=== PATIENT | male | born 1935 | race Caucasian/White ===

== ENCOUNTER → 2017-08-12 | Outpatient (CLI) | payer MEDICARE, OTHER ==
[~2017-08-12] MED LIST: ACETAMINOPHEN325 M1 PO; ASPIR 8181 MG PO; BACTRIM 400-801 EACH PO; CALCIUM ACETAT667 M1; COLESTIPOL HCL1 GM PO; DIATRIZOATE MEGL/DIATRIZOA SOD 30 ML BTL PO ONE; DICYCLOMINE; DICYCLOMINE HCL10 MG PO; ETODOLAC; ETODOLAC400 MG PO; FOLIC ACID; FOLIC ACID1 MG PO; GABAPENTIN; GABAPENTIN100 MG PO; GABAPENTIN300 MG PO; HYDROXYZINE HCL25 MG PO; IOPAMIDOL 370 MG/ML 200 ML INFUS..BTL INJ ONE; LACTULOSE; METHOTREXATE; METHOTREXATE2.5 MG PO; METOCLOPRAMIDE10 MG PO; NEXIUM20 MG; NEXIUM20 MG PO; PANTOPRAZOLE SO40 MG PO; PLAQUENIL200 MG PO; SODIUM CHLORIDE 0.9% 50ML 50 ML ONE; TRAMADOL; TYLENOL 8 HOUR650 MG PO; ULTRAM50 MG PO; metanx PO
[2017-08-12 13:36] LABS: BLOOD UREA NITROGEN 17 mg/dL (7-26); BUN/CREATININE RATIO 18 (6-25); CREATININE, SERUM 0.95 mg/dL (0.72-1.25); EST GLOMERULAR FILTRATION RATE > 60 ML/MIN (60-)
--- NOTE | 2017-08-12 15:20 | Diagnostic Imaging Report ---
PROCEDURE: CT ABDOMEN AND PELVIS WITH CONTRAST TECHNIQUE: The abdomen and pelvis were scanned utilizing a multidetector helical scanner from the diaphragm to the lesser trochanter after the IV administration of 100 cc of Isovue 370 and the oral administration of dilute Gastrografin. Coronal and sagittal multiplanar reformations were obtained. COMPARISON: Patients [facility], DX, ABDOMEN COMP INCL UPR OR DECUB, 09/21/2015, 17:53. [facility], CT, CT ABDOMEN/PELVIS W, 02/11/2015, 21:19. [facility], CT, CT ABDOMEN/PELVIS W, 01/07/2013, 12:58. [facility], CT, CT ABDOMEN/PELVIS W, 11/06/2015, 8:42. INDICATIONS: LEFT LOWER QUADRANT PAIN FINDINGS: LOWER THORAX: Main pulmonary artery is enlarged, measuring 4.1 cm. In linear subsegmental atelectasis versus scarring in the left lower lobe and lingula (sagittal image 114). Distal portion of cardiac wires noted in the right atrium and right ventricle. Atherosclerotic calcification of the coronary arteries and thoracic aorta. HEPATOBILIARY: Normal hepatic size and contour. Scattered punctate calcifications throughout the liver, likely representing calcified granulomas. No focal lesions. No biliary ductal dilation. Cholecystectomy clips. SPLEEN: No splenomegaly. Calcified splenic granulomas. PANCREAS: No focal masses or ductal dilatation. ADRENALS: Relatively stable focal rounded lesion in the left adrenal gland, measuring 1.3 x 1.4 cm (series 2, image 25) since exam dated 02/11/2015. Right adrenal is unremarkable. KIDNEYS/URETERS: No hydronephrosis or solid mass lesions. Stable 2.2 cm simple cyst in the superior to mid right kidney (series 2 image 42). Interval decrease in size of 2.6 x 2.4 cm simple cyst in the inferior pole of the left kidney (series 2 image 44). 2 mm nonobstructing calculus in the inferior pole of the left kidney (series 2 image 40). PELVIC ORGANS/BLADDER: Bladder is unremarkable. No focal lesions. Prostate is unremarkable. PERITONEUM / RETROPERITONEUM: No free air or fluid. LYMPH NODES: No lymphadenopathy. VESSELS: Atherosclerotic calcification of the abdominal aorta and iliac vessels. GI TRACT: Stable postoperative changes in the sigmoid colon. Several moderately dilated small bowel loops in the anterior abdomen are again noted, however, increased since the previous exam, with maximal dilation of approximately 7 cm. There is interposition of small bowel loops between the right hemidiaphragm and the liver (for example coronal image 61). No definite evidence of obstruction, as contrast is noted past these bowel loops in the ileum at the right lower quadrant with no large bowel dilation. Sigmoid and descending colon diverticulosis, without diverticulitis.. BONES AND SOFT TISSUES: No acute bony abnormalities. Multilevel degenerative disc changes in the lower thoracic and lumbosacral spine, worse at L4-L5. Facet hypertrophy L3 through S1. No aggressive lytic or blastic lesion. IMPRESSION: 1. several moderately dilated small bowel loops in the anterior abdomen are again seen, however, increased since the prior exam dated 11/06/2015. There is interposition of small bowel loops within the right hemidiaphragm and the liver, however, no complete obstruction is seen, as contrast is noted in the ileum in the right lower quadrant. 2. Stable focal rounded lesion in the left adrenal gland since 2014. Although this lesion remains indeterminate, stability favors a benign adenoma. This may be further assessed with CT abdomen with adrenal mass protocol, if clinically indicated. 3. 2 mm nonobstructing calculus in the inferior pole of the left kidney. 4. Sigmoid and descending colon diverticulosis, without diverticulitis. 5. Enlarged main pulmonary artery, suggesting pulmonary hypertension. Marty Hernandez M.D. Dictated by: Marty Hernandez M.D. on 08/12/2017 at 15:29 Electronically approved by: Marty Hernandez M.D. on 08/12/2017 at 15:29
== END ==
LOC: CT 12:33
PROVIDERS: ATTEND Surgery
DX: R10.32 Left lower quadrant pain (principal); R19.4 Change in bowel habit
CPT/HCPCS: 36415; 74177; 82565; 84520; Q9967

== ENCOUNTER 2017-10-13 06:07 | Inpatient (IN) | payer MEDICARE, OTHER ==
[~2017-10-13] VITALS: Ht 185.4 cm; Wt 90.8 kg
[~2017-10-13 06:07] MED LIST changes: -DIATRIZOATE MEGL/DIATRIZOA SOD 30 ML BTL PO ONE; -IOPAMIDOL 370 MG/ML 200 ML INFUS..BTL INJ ONE; -SODIUM CHLORIDE 0.9% 50ML 50 ML ONE
--- OUTSIDE RECORDS SUMMARY | 2017-10-13 06:11 | XMS REPORT ---
Author Author [facility] Address Unknown Phone Unavailable Care Team Providers Care Food Analyst Name Role Phone ANGELICA SALDAÑA Unavailable Unavailable Problems This patient has no known problems. Allergies, Adverse Reactions, Alerts This patient has no known allergies or adverse reactions. Medications This patient has no known medications. Results Test Description Test Time Test Comments Text Results Atomic Results Result Comments CT ABDOMEN/PELVIS W [place] [address] Patient Name: Thu YOUNGER MR #: [id number] : 1935 Age/Sex: 82/M Req # : [id number] Adm Physician: Ordered by: ANGELICA SALDAÑA MD Report #: [id number] Location: CT Room/Bed: Procedure: [id number] [id number] CT/CT ABDOMEN/PELVIS W Exam Date: 08/12/17 Exam Time: 1345 REPORT STATUS: Signed PROCEDURE: CT ABDOMEN AND PELVIS WITH CONTRAST TECHNIQUE: The abdomen and pelvis were scanned utilizing a multidetector helical scanner from the diaphragm to the lesser trochanter after the IV administration of 100 cc of Isovue 370 and the oral administration of dilute Gastrografin. Coronal and sagittal multiplanar reformations were obtained. COMPARISON: [facility], DX, ABDOMEN COMP INCL UPR OR DECUB, 09/21/2015, 17:53. [facility], CT, CT ABDOMEN/PELVIS W, 02/11/2015, 21:19. Patients [facility], CT, CT ABDOMEN/PELVIS W, 01/07/2013, 12:58. Patients [facility], CT, CT ABDOMEN/PELVIS W, 11/06/2015, 8:42. INDICATIONS: LEFT LOWER QUADRANT PAIN FINDINGS: LOWER THORAX: Main pulmonary artery is enlarged, measuring 4.1 cm. In linear subsegmental atelectasis versus scarring in the left lower lobe and lingula (sagittal image 114). Distal portion of cardiac wires noted in the right atrium and right ventricle. Atherosclerotic calcification of the coronary arteries and thoracic aorta. HEPATOBILIARY: Normal hepatic size and contour. Scattered punctate calcifications throughout the liver, likely representing calcified granulomas. No focal lesions. No biliary ductal dilation. Cholecystectomy clips. SPLEEN: No splenomegaly. Calcified splenic granulomas. PANCREAS: No focal masses or ductal dilatation. ADRENALS: Relatively stable focal rounded lesion in the left adrenal gland, measuring 1.3 x 1.4 cm (series 2, image 25) since exam dated 02/11/2015. Right adrenal is unremarkable. KIDNEYS/URETERS: No hydronephrosis or solid mass lesions. Stable 2.2 cm simple cyst in the superior to mid right kidney (series 2 image 42). Interval decrease in size of 2.6 x 2.4 cm simple cyst in the inferior pole of the left kidney (series 2 image 44). 2 mm nonobstructing calculus in the inferior pole of the left kidney (series 2 image 40). PELVIC ORGANS/BLADDER : Bladder is unremarkable. No focal lesions. Prostate is unremarkable. PERITONEUM / RETROPERITONEUM: No free air or fluid. LYMPH NODES: No lymphadenopathy. VESSELS: Atherosclerotic calcification of the abdominal aorta and iliac vessels. GI TRACT: Stable postoperative changes in the sigmoid colon. Several moderately dilated small bowel loops in the anterior abdomen are again noted, however, increased since the previous exam, with maximal dilation of approximately 7 cm. There is interposition of small bowel loops between the right hemidiaphragm and the liver (for example coronal image 61). No definite evidence of obstruction, as contrast is noted past these bowel loops in the ileum at the right lower quadrant with no large bowel dilation. Sigmoid and descending colon diverticulosis, without diverticulitis.. BONES AND SOFT TISSUES: No acute bony abnormalities. Multilevel degenerative disc changes in the lower thoracic and lumbosacral spine, worse at L4-L5. Facet hypertrophy L3 through S1. No aggressive lytic or blastic lesion. IMPRESSION: 1. several moderately dilated small bowel loops in the anterior abdomen are again seen, however, increased since the prior exam dated 11/06/2015. There is interposition of small bowel loops within the right hemidiaphragm and the liver, however, no complete obstruction is seen, as contrast is noted in the ileum in the right lower quadrant. 2. Stable focal rounded lesion in the left adrenal gland since 2014. Although this lesion remains indeterminate, stability favors a benign adenoma. This may be further assessed with CT abdomen with adrenal mass protocol, if clinically indicated. 3. 2 mm nonobstructing calculus in the inferior pole of the left kidney. 4. Sigmoid and descending colon diverticulosis, without diverticulitis. 5. Enlarged main pulmonary artery, suggesting pulmonary hypertension. Yeny Sam M.D. Dictated by: Yeny Sam M.D. on 08/12/2017 at 15:29 Electronically approved by: Yeny Sam M.D. on 08/12/2017 at 15:29 Dictated By: YENY SAM MD 1529 Transcribed By: BASSAM on 08/12/17 1529 COPY TO: ANGELICA SALDAÑA MD
[2017-10-13] MEDS ORDERED: SODIUM CHLORIDE 0.9% 1000ML 1,000 ML IV STA (06:22)
[2017-10-13] MEDS ORDERED: DIATRIZOATE MEGL/DIATRIZOA SOD 30 ML BTL PO ONE (06:42)
[2017-10-13 06:49] LABS: BASOPHILS % 0.3 % (0.0-1.0); EOSINOPHILS # (AUTO) 0.1 (0.0-0.4); EOSINOPHILS % 0.8 % (0.0-6.0); HEMOGLOBIN 14.2 g/dL (14.0-18.0); LYMPHOCYTES # (AUTO) 0.8 (1.0-3.2); LYMPHOCYTES % 7.9 % (18.0-39.1); MEAN CORPUSCULAR HEMOGLOBIN 27.2 pg (28-32); MEAN CORPUSCULAR VOLUME 82.2 fL (81-99); MONOCYTES # (AUTO) 0.8 (0.2-0.8); MONOCYTES % 7.4 % (4.4-11.3); NEUTROPHILS # (AUTO) 8.8 (2.1-6.9); NEUTROPHILS % 83.2 % (38.7-80.0); PLATELET COUNT 256 x10e3/uL (140-360); RED BLOOD COUNT 5.23 x10e6/uL (4.3-5.7)
[2017-10-13 06:55] LABS: INR 1.06
[2017-10-13 06:56] LABS: PARTIAL THROMBOPLASTIN TIME 32.3 seconds (23.8-35.5)
[2017-10-13 07:02] LABS: ALBUMIN 3.9 g/dL (3.5-5.0); ALBUMIN/GLOBULIN RATIO 0.9 (0.8-2.0); ANION GAP 16.1 mmol/L (8-16); CALCIUM 10.5 mg/dL (8.4-10.2); CREATININE, SERUM 1.39 mg/dL (0.72-1.25); POTASSIUM 5.1 mmol/L (3.5-5.1)
--- NOTE | 2017-10-13 07:07 | Diagnostic Imaging Report ---
PROCEDURE: CHEST SINGLE (PORTABLE) COMPARISON: CT chest abdomen and pelvis 11/06/2015, CT abdomen pelvis 08/12/2017. INDICATIONS: SHORTNESS OF BREATH FINDINGS: Lung volumes are low with linear opacities in the lung bases no gross consolidation or pleural effusion. No pneumothorax. Stable cardiomediastinal contour with tortuosity and atherosclerotic calcification of the thoracic aorta with enlargement of the pulmonary outflow tract. Right subclavian implantable cardiac device body and leads are unchanged. No overt pulmonary edema. No acute osseous abnormality. Air lucency under the right hemidiaphragm, shown to represent loops of bowel superior to the liver dome on comparison CT examinations. CONCLUSION: Low lung volumes with subsegmental atelectasis in the bases. Dictated by: Jose Guerra M.D. on 10/13/2017 at 7:06 Electronically approved by: Jose Guerra M.D. on 10/13/2017 at 7:06
[2017-10-13 07:09] LABS: CREATINE KINASE MB 2.4 ng/mL (0-5.0)
[2017-10-13] MEDS: CEFTRIAXONE SOD 1 GM VIAL IV SCH ×2 (07:31→19:41)
[2017-10-13] MEDS: METRONIDAZOLE 500MG/NS 100ML 100 ML IV SCH ×4 (07:31→23:12)
--- NOTE | 2017-10-13 08:13 | Diagnostic Imaging Report ---
PROCEDURE: CT ABDOMEN AND PELVIS WITH CONTRAST TECHNIQUE: The abdomen and pelvis were scanned utilizing a multidetector helical scanner from the diaphragm to the lesser trochanter after the IV administration of 100 cc of Isovue 370 and the oral administration of Gastroview. Coronal and sagittal multiplanar reformations were obtained. COMPARISON: 08/12/2017. INDICATIONS: STOMACH PAIN, DIRRHEA FINDINGS: LOWER THORAX: Subsegmental atelectasis in the dependent portions of the lower lobes. Enlarged pulmonary outflow tract. [place] coronary artery calcifications partially visualized. Implantable cardiac device leads partially visualized. HEPATOBILIARY: Calcified granulomata in the right lobe. Otherwise no focal hepatic lesion or intrahepatic biliary ductal dilatation. The gallbladder has been removed. SPLEEN: Calcified granulomata. No splenomegaly. PANCREAS: No focal masses or ductal dilatation. ADRENALS: Stable 1.4 cm left adrenal nodule, average internal attenuation of 70 Hounsfield units. This nodule has been stable compared to prior examinations and is favored to represent an adenoma as previously discussed. No right adrenal nodule. KIDNEYS/URETERS: Unchanged 2.1 cm right and 2.7 cm left renal cysts. Punctate bilateral nonobstructing calculi. Additional subcentimeter hypoattenuating lesions bilaterally, too small to further characterize but likely to also represent small cysts. No ureteral or bladder calculi. PELVIC ORGANS/BLADDER: The urinary bladder is unremarkable. PERITONEUM / RETROPERITONEUM: Trace free fluid along the right paracolic gutter. No pneumoperitoneum. LYMPH NODES: No pelvic sidewall, retroperitoneal, or mesenteric lymphadenopathy. VESSELS: Atherosclerotic calcification of the abdominal aorta, major branch vessels, and iliac arterial systems without aneurysmal dilatation. The portal vein, splenic vein, and central superior mesenteric vein are patent. GI TRACT: As before, there are postsurgical changes along the sigmoid colon. Large bowel diverticulosis without evidence of diverticulitis. There are multiple loops of markedly dilated small bowel to a maximum caliber of 7 cm, to include interposed loops of bowel between the hepatic dome and right hemidiaphragm. Degree of small bowel dilatation has progressed relative to 08/12/2017. New wall thickening with adjacent inflammatory stranding involving the cecum and terminal ileum, with short segment narrowing of the cecum/ascending colon as seen on series 2 image 64. No definite transition point is identified within the small bowel, though the terminal ileum is involved by the above-described inflammatory process. BONES AND SOFT TISSUES: No focal soft tissue abnormalities. Atrophy of the left rectus abdominis muscle, unchanged. No osseous destructive lesion. Multilevel degenerative disc disease and degenerative facet arthropathy of the lumbar spine.. IMPRESSION: Postsurgical changes of the abdomen with interval development of inflammatory changes along the cecum and terminal ileum compatible with colitis, likely infectious or inflammatory in nature. Terminal ileal inflammation is associated with interval increase in diffuse small bowel dilatation relative to 08/12/2017, which may reflect partial obstruction. No vincent perforation or drainable fluid collection. Large bowel diverticulosis without evidence of diverticulitis. Punctate bilateral nonobstructing renal calculi. Atherosclerotic vascular disease. Dictated by: Jose Guerra M.D. on 10/13/2017 at 8:12 Electronically approved by: Jose Guerra M.D. on 10/13/2017 at 8:12
[2017-10-13 09:03] LABS: CLARITY,URINE CLEAR (CLEAR); COLOR,URINE YELLOW (YELLOW); KETONES,URINE NEGATIVE (NEGATIVE); LEUKOCYTE ESTERASE ,URINE NEGATIVE (NEGATIVE); NITRITE,URINE NEGATIVE (NEGATIVE); URINE UROBILINOGEN 4 mg/dL (0.2 - 1)
[2017-10-13 09:04] LABS: BILIRUBIN,URINE 1+ (NEGATIVE); PROTEIN,URINE DIPSTICK 1+ (NEGATIVE)
[2017-10-13] MEDS ORDERED: CEFTRIAXONE SOD 1 GM VIAL IV SCH (09:15)
[2017-10-13] MEDS ORDERED: SODIUM CHLORIDE FLUSH 10 ML SYR INJ PRN (09:15)
[2017-10-13] MEDS: SODIUM CHLORIDE 0.9% 1000ML 1,000 ML IV SCH ×2 (09:33→20:00)
[2017-10-13 09:39] LABS: BACTERIA,URINE FEW /HPF; EPITHELIAL CELLS,URINE FEW /LPF; RBC,URINE 0-5 /HPF (0-5); WBC,URINE (MAN) 0-5 /HPF (0-5)
[2017-10-13] MEDS: SODIUM CHLORIDE 0.9% 250ML IRRIG IR SCH ×4 (10:32→23:12)
--- NOTE | 2017-10-13 10:46 | Diagnostic Imaging Report ---
PROCEDURE:X-RAY ABDOMEN - KUB COMPARISON:CT abdomen and pelvis same day. INDICATIONS:NG TUBE PLACEMENT FINDINGS: Enteric tube tip projects over the expected region of the gastroesophageal junction. Multiple dilated air-filled loops of bowel are again noted. Refer to same day CT abdomen and pelvis for further details. The right flank is not included on the radiograph. Regional skeletal structures are grossly intact. Excreted intravenous contrast material partially opacifies the upper renal collecting systems. CONCLUSION: Enteric tube tip projects over the expected region of the gastroesophageal junction. Advancement is suggested. Diffuse bowel dilatation, seen to better advantage on comparison CT. Dictated by: Jose Guerra M.D. on 10/13/2017 at 10:45 Electronically approved by: Jose Guerra M.D. on 10/13/2017 at 10:45
[2017-10-13 11:45] VITALS: BP 116/72
[2017-10-13] MEDS ORDERED: METRONIDAZOLE 500MG/NS 100ML 100 ML IV SCH (14:00)
[2017-10-13 14:42] VITALS: BP 117/61
[2017-10-13] MEDS ORDERED: SODIUM CHLORIDE 0.9% 50ML 50 ML ONE (15:04)
[2017-10-13] MEDS ORDERED: IOPAMIDOL 370 MG/ML 200 ML INFUS..BTL INJ ONE (15:04)
[2017-10-13 17:10] VITALS: BP 124/68
[2017-10-13 20:00] VITALS: BP 118/63
[2017-10-13 20:02] VITALS: BP 118/63
[2017-10-13] MEDS: BISACODYL 10 MG SUPP PR SCH (21:08)
[2017-10-14] VITALS (8 sets, daily range): BP systolic 101–122; BP diastolic 54–67
[2017-10-14] MEDS: SODIUM CHLORIDE 0.9% 1000ML 1,000 ML IV SCH ×3 (01:03→17:03)
[2017-10-14] MEDS: ONDANSETRON HCL INJ 2 MG/ML VIAL IV PRN ×2 (01:45→21:32)
[2017-10-14] MEDS: MORPHINE SULFATE 2 MG/ML SYR IV PRN ×2 (01:45→21:32)
[2017-10-14] MEDS: SODIUM CHLORIDE 0.9% 250ML IRRIG IR SCH ×6 (02:53→22:00)
[2017-10-14] MEDS: METRONIDAZOLE 500MG/NS 100ML 100 ML IV SCH ×3 (05:11→17:00)
[2017-10-14 06:43] LABS: BASOPHILS % 0.3 % (0.0-1.0); EOSINOPHILS # (AUTO) 0.1 (0.0-0.4); EOSINOPHILS % 1.4 % (0.0-6.0); HEMOGLOBIN 11.9 g/dL (14.0-18.0); LYMPHOCYTES # (AUTO) 0.9 (1.0-3.2); MEAN CORPUSCULAR HEMOGLOBIN 27.3 pg (28-32); MEAN CORPUSCULAR HGB CONC 32.2 g/dL (31-35); MEAN CORPUSCULAR VOLUME 84.9 fL (81-99); MONOCYTES # (AUTO) 0.6 (0.2-0.8); MONOCYTES % 7.3 % (4.4-11.3); NEUTROPHILS # (AUTO) 6.1 (2.1-6.9); NEUTROPHILS % 78.5 % (38.7-80.0); PLATELET COUNT 181 x10e3/uL (140-360); RED BLOOD COUNT 4.36 x10e6/uL (4.3-5.7); RED CELL DISTRIBUTION WIDTH 14.1 % (11.7-14.4)
--- NOTE | 2017-10-14 07:08 | Diagnostic Imaging Report ---
PROCEDURE:ABDOMEN ACUTE SERIES W/PA CXR COMPARISON:CT abdomen and pelvis 10/13/2017. INDICATIONS:SMALL BOWEL OBSTRUCTION FINDINGS: CHEST: Lung volumes are low with subsegmental atelectasis in the bases. Lung apices are well aerated. Unchanged cardiomediastinal contour with tortuosity of the thoracic aorta and enlargement of the pulmonary outflow tract. Right subclavian approach implantable cardiac device body and leads are unchanged. BOWEL PATTERN: Enteric tube tip has been advanced. The tip now projects over the expected region of the gastric body. No appreciable interval change in significantly dilated small bowel, up to 7.5 cm in maximum caliber. Multiple air-fluid levels are noted on the upright radiograph. Excreted intravenous contrast material opacifies the urinary bladder. Enteric contrast just superior to the bladder likely lies within distal small bowel loops. SOFT TISSUES: Unremarkable. Multiple surgical clips are noted in the low pelvis. BONES: Regional skeletal structures are intact with multilevel degenerative disc disease of the lumbar spine. CONCLUSION: Low lung volumes with subsegmental atelectasis in the lung bases. Otherwise clear lungs. Interval advancement of enteric tube, with the tip now projecting over the expected region of the gastric body. Stable markedly dilated loops of small bowel, concerning for obstruction as described on comparison CT 10/13/2017. Dictated by: Jose Guerra M.D. on 10/14/2017 at 7:08 Electronically approved by: Jose Guerra M.D. on 10/14/2017 at 7:08
[2017-10-14 07:11] LABS: ALANINE AMINOTRANSFERASE 24 IU/L (0-55); ALBUMIN 2.8 g/dL (3.5-5.0); ALBUMIN/GLOBULIN RATIO 0.9 (0.8-2.0); ALKALINE PHOSPHATASE 66 IU/L (40-150); ANION GAP 13.5 mmol/L (8-16); BLOOD UREA NITROGEN 15 mg/dL (7-26); BUN/CREATININE RATIO 20 (6-25); CALCIUM 8.9 mg/dL (8.4-10.2); CARBON DIOXIDE 24 mmol/L (22-29); CHLORIDE 104 mmol/L (98-107); CREATININE, SERUM 0.76 mg/dL (0.72-1.25); EST GLOMERULAR FILTRATION RATE > 60 ML/MIN (60-); GLUCOSE 71 mg/dL (74-118); POTASSIUM 4.5 mmol/L (3.5-5.1); SODIUM 137 mmol/L (136-145)
[2017-10-14] MEDS: CEFTRIAXONE SOD 1 GM VIAL IV SCH ×2 (07:14→18:00)
[2017-10-14] MEDS: BISACODYL 10 MG SUPP PR SCH ×2 (09:55→20:45)
[2017-10-15] VITALS (7 sets, daily range): BP systolic 98–119; BP diastolic 56–69
[2017-10-15] MEDS: METRONIDAZOLE 500MG/NS 100ML 100 ML IV SCH ×4 (00:05→17:37)
[2017-10-15] MEDS: SODIUM CHLORIDE 0.9% 250ML IRRIG IR SCH ×6 (00:30→20:59)
[2017-10-15] MEDS: SODIUM CHLORIDE 0.9% 1000ML 1,000 ML IV SCH (05:23)
[2017-10-15 07:31] LABS: BASOPHILS % 0.4 % (0.0-1.0); EOSINOPHILS % 0.5 % (0.0-6.0); HEMATOCRIT 39.7 % (38.2-49.6); HEMOGLOBIN 12.6 g/dL (14.0-18.0); LYMPHOCYTES # (AUTO) 0.7 (1.0-3.2); LYMPHOCYTES % 7.9 % (18.0-39.1); MEAN CORPUSCULAR HGB CONC 31.7 g/dL (31-35); MONOCYTES # (AUTO) 0.6 (0.2-0.8); MONOCYTES % 7.3 % (4.4-11.3); NEUTROPHILS # (AUTO) 7.1 (2.1-6.9); NEUTROPHILS % 83.5 % (38.7-80.0); PLATELET COUNT 234 x10e3/uL (140-360); RED BLOOD COUNT 4.67 x10e6/uL (4.3-5.7); RED CELL DISTRIBUTION WIDTH 13.9 % (11.7-14.4)
[2017-10-15] MEDS: CEFTRIAXONE SOD 1 GM VIAL IV SCH ×2 (07:31→19:16)
[2017-10-15] MEDS: BISACODYL 10 MG SUPP PR SCH (07:50)
[2017-10-15 08:06] LABS: ALANINE AMINOTRANSFERASE 20 IU/L (0-55); ALBUMIN/GLOBULIN RATIO 0.8 (0.8-2.0); ALKALINE PHOSPHATASE 66 IU/L (40-150); ANION GAP 18.1 mmol/L (8-16); BLOOD UREA NITROGEN 20 mg/dL (7-26); BUN/CREATININE RATIO 24 (6-25); CALCIUM 9.1 mg/dL (8.4-10.2); CARBON DIOXIDE 22 mmol/L (22-29); CHLORIDE 104 mmol/L (98-107); CREATININE, SERUM 0.82 mg/dL (0.72-1.25); EST GLOMERULAR FILTRATION RATE > 60 ML/MIN (60-); GLUCOSE 68 mg/dL (74-118); POTASSIUM 4.1 mmol/L (3.5-5.1); SODIUM 140 mmol/L (136-145)
--- NOTE | 2017-10-15 09:09 | Diagnostic Imaging Report ---
PROCEDURE:ABDOMEN ACUTE SERIES W/PA CXR COMPARISON:Abdominal series 10/14/2017. INDICATIONS:ABDOMEN PAIN, SMALL BOWEL OBSTRUCTION FINDINGS: CHEST: Right subclavian cardiac device with leads projecting over the expected regions of the right atrium and ventricle. Enteric feeding catheter is present with the tip projecting over the expected region of the gastric body. Normal cardiac silhouette. Atherosclerotic calcifications. No focal consolidation. No parenchymal mass. Bibasilar atelectasis. No pleural effusion. No pneumothorax. BOWEL PATTERN: Multiple dilated air-filled loops of small bowel are present with air-fluid levels. Lucencies are noted in the right upper and left upper quadrants, likely representing loops of dilated small bowel. SOFT TISSUES: Surgical clips are present in the right upper quadrant and lower pelvis. BONES: Degenerative changes of the thoracic and lumbar spine. CONCLUSION: Multiple loops of dilated air-filled small bowel with air-fluid levels consistent with obstruction. Lucencies in the upper quadrants likely represent small bowel loops and not pneumoperitoneum. Correlate with serial physical examination. Dictated by: Jaden Guerra M.D. on 10/15/2017 at 9:09 Electronically approved by: Jaden Guerra M.D. on 10/15/2017 at 9:09
[2017-10-15] MEDS: DEXTROSE 5%/0.9% SOD CHL 1,000 ML IV SCH ×2 (10:55→23:35)
[2017-10-15] MEDS: MORPHINE SULFATE 2 MG/ML SYR IV PRN ×2 (14:08→19:17)
[2017-10-16] VITALS (8 sets, daily range): BP systolic 117–138; BP diastolic 64–79
[2017-10-16] MEDS: METRONIDAZOLE 500MG/NS 100ML 100 ML IV SCH ×4 (00:10→17:46)
[2017-10-16] MEDS: SODIUM CHLORIDE 0.9% 250ML IRRIG IR SCH ×6 (01:50→20:27)
[2017-10-16] MEDS: DEXTROSE 5%/0.9% SOD CHL 1,000 ML IV SCH ×2 (04:00→20:27)
[2017-10-16] MEDS: MORPHINE SULFATE 2 MG/ML SYR IV PRN ×2 (04:55→18:27)
[2017-10-16] MEDS: CEFTRIAXONE SOD 1 GM VIAL IV SCH ×2 (06:36→18:27)
[2017-10-16 07:43] LABS: BASOPHILS % 0.5 % (0.0-1.0); EOSINOPHILS # (AUTO) 0.1 (0.0-0.4); EOSINOPHILS % 1.8 % (0.0-6.0); HEMATOCRIT 37.1 % (38.2-49.6); HEMOGLOBIN 11.6 g/dL (14.0-18.0); LYMPHOCYTES # (AUTO) 0.6 (1.0-3.2); LYMPHOCYTES % 10.6 % (18.0-39.1); MEAN CORPUSCULAR HEMOGLOBIN 26.9 pg (28-32); MEAN CORPUSCULAR HGB CONC 31.3 g/dL (31-35); MEAN CORPUSCULAR VOLUME 86.1 fL (81-99); MONOCYTES # (AUTO) 0.6 (0.2-0.8); MONOCYTES % 10.4 % (4.4-11.3); NEUTROPHILS # (AUTO) 4.3 (2.1-6.9); NEUTROPHILS % 76.5 % (38.7-80.0); PLATELET COUNT 203 x10e3/uL (140-360); RED BLOOD COUNT 4.31 x10e6/uL (4.3-5.7); RED CELL DISTRIBUTION WIDTH 13.7 % (11.7-14.4)
[2017-10-16 08:19] LABS: ANION GAP 11.4 mmol/L (8-16); BLOOD UREA NITROGEN 12 mg/dL (7-26); BUN/CREATININE RATIO 15 (6-25); CALCIUM 8.9 mg/dL (8.4-10.2); CARBON DIOXIDE 29 mmol/L (22-29); CHLORIDE 108 mmol/L (98-107); CREATININE, SERUM 0.79 mg/dL (0.72-1.25); EST GLOMERULAR FILTRATION RATE > 60 ML/MIN (60-); GLUCOSE 103 mg/dL (74-118); POTASSIUM 4.4 mmol/L (3.5-5.1); SODIUM 144 mmol/L (136-145)
--- NOTE | 2017-10-16 10:49 | Diagnostic Imaging Report ---
EXAM: ABDOMEN COMP INCL UPR or DECUB DATE: 10/16/2017 9:20 AM INDICATION: Small bowel obstruction COMPARISON: 10/15/2017 radiographs FINDINGS: Postsurgical changes overlying the lower abdomen and pelvis as well as NG tube again noted. Central venous catheter with tip overlying right atrium partially visualized. Extensive gas-filled loops of small and large bowel present, not significantly changed. Fluid levels again noted. Gas under the right hemidiaphragm is similar in appearance having the appearance of gas filled loop of colon. Exclusion of pneumoperitoneum difficult. IMPRESSION: Persistent extensive dilated loops of small and large bowel present. Exclusion of pneumoperitoneum limited. CT could be obtained for further evaluation if indicated. Signed by: Dr. Miguel Mcnamara MD on 10/16/2017 10:45 AM
[2017-10-16] MEDS: PANTOPRAZOL 40MG/SOD CHL 0.9% 50 ML IV SCH (20:29)
[2017-10-17] VITALS (8 sets, daily range): BP systolic 123–143; BP diastolic 70–76
[2017-10-17] MEDS: METRONIDAZOLE 500MG/NS 100ML 100 ML IV SCH ×5 (00:03→23:59)
[2017-10-17] MEDS: PANTOPRAZOL 40MG/SOD CHL 0.9% 50 ML IV SCH ×5 (00:03→22:32)
[2017-10-17] MEDS: SODIUM CHLORIDE 0.9% 250ML IRRIG IR SCH ×6 (02:00→20:30)
[2017-10-17] MEDS: DEXTROSE 5%/0.9% SOD CHL 1,000 ML IV SCH ×3 (02:15→15:35)
[2017-10-17] MEDS: CEFTRIAXONE SOD 1 GM VIAL IV SCH ×2 (06:05→17:06)
--- NOTE | 2017-10-17 09:36 | Diagnostic Imaging Report ---
EXAMINATION: ABDOMEN COMP INCL UPR or DECUB 10/17/2017 6:00 AM COMPARISON: 10/16/2017 INDICATION: Small bowel obstruction. Terminal ileitis. DISCUSSION: 2 views of the abdomen (AP supine and upright) NG tube has its tip projected over the gastric body. Partially visualized leads for a cardiac pacemaker device. Moderately dilated loops of small and large bowel with differential air-fluid levels. Surgical clips and sutures are present in the midline pelvis No abnormal calcifications projected over the urinary tracts. Bones and soft tissues are unremarkable. IMPRESSION: Dilated loops of small and large bowel with differential air-fluid levels, suggestive of mechanical bowel obstruction. No pneumoperitoneum is identified. Elgin Baptiste MD Signed by: Dr. Elgin Baptiste M.D. on 10/17/2017 9:33 AM
[2017-10-17 10:20] LABS: BASOPHILS % 0.4 % (0.0-1.0); EOSINOPHILS # (AUTO) 0.1 (0.0-0.4); EOSINOPHILS % 1.4 % (0.0-6.0); HEMATOCRIT 39.2 % (38.2-49.6); HEMOGLOBIN 12.3 g/dL (14.0-18.0); LYMPHOCYTES # (AUTO) 0.6 (1.0-3.2); LYMPHOCYTES % 12.2 % (18.0-39.1); MEAN CORPUSCULAR HEMOGLOBIN 26.9 pg (28-32); MEAN CORPUSCULAR HGB CONC 31.4 g/dL (31-35); MEAN CORPUSCULAR VOLUME 85.8 fL (81-99); MONOCYTES # (AUTO) 0.5 (0.2-0.8); NEUTROPHILS # (AUTO) 3.6 (2.1-6.9); NEUTROPHILS % 74.4 % (38.7-80.0); PLATELET COUNT 193 x10e3/uL (140-360); RED BLOOD COUNT 4.57 x10e6/uL (4.3-5.7); RED CELL DISTRIBUTION WIDTH 13.7 % (11.7-14.4)
[2017-10-17 10:40] LABS: ANION GAP 12.4 mmol/L (8-16); BLOOD UREA NITROGEN 8 mg/dL (7-26); BUN/CREATININE RATIO 11 (6-25); CALCIUM 9.3 mg/dL (8.4-10.2); CARBON DIOXIDE 31 mmol/L (22-29); CHLORIDE 109 mmol/L (98-107); CREATININE, SERUM 0.75 mg/dL (0.72-1.25); EST GLOMERULAR FILTRATION RATE > 60 ML/MIN (60-); GLUCOSE 108 mg/dL (74-118); POTASSIUM 4.4 mmol/L (3.5-5.1); SODIUM 148 mmol/L (136-145)
[2017-10-17] MEDS ORDERED: PERIPHERAL TPN FORMULA 1 BAG IV SCH (20:00)
[2017-10-17] MEDS: KCL 20MEQ/.9 SOD CHL 1,000 ML IV SCH (20:30)
[2017-10-17] MEDS: MORPHINE SULFATE 2 MG/ML SYR IV PRN (20:50)
[2017-10-18] VITALS (7 sets, daily range): BP systolic 117–139; BP diastolic 63–77
[2017-10-18] MEDS: SODIUM CHLORIDE 0.9% 250ML IRRIG IR SCH ×6 (00:32→21:15)
[2017-10-18] MEDS: CEFTRIAXONE SOD 1 GM VIAL IV SCH ×2 (05:20→18:57)
[2017-10-18] MEDS: METRONIDAZOLE 500MG/NS 100ML 100 ML IV SCH ×3 (05:25→18:57)
[2017-10-18] MEDS: PANTOPRAZOL 40MG/SOD CHL 0.9% 50 ML IV SCH ×5 (05:25→23:00)
[2017-10-18 07:32] LABS: BASOPHILS % 0.5 % (0.0-1.0); EOSINOPHILS # (AUTO) 0.1 (0.0-0.4); EOSINOPHILS % 1.1 % (0.0-6.0); HEMATOCRIT 35.7 % (38.2-49.6); HEMOGLOBIN 11.1 g/dL (14.0-18.0); LYMPHOCYTES # (AUTO) 0.6 (1.0-3.2); LYMPHOCYTES % 8.6 % (18.0-39.1); MEAN CORPUSCULAR HEMOGLOBIN 26.8 pg (28-32); MEAN CORPUSCULAR HGB CONC 31.1 g/dL (31-35); MEAN CORPUSCULAR VOLUME 86.2 fL (81-99); MONOCYTES # (AUTO) 0.5 (0.2-0.8); MONOCYTES % 7.4 % (4.4-11.3); NEUTROPHILS # (AUTO) 5.3 (2.1-6.9); NEUTROPHILS % 81.2 % (38.7-80.0); PLATELET COUNT 182 x10e3/uL (140-360); RED BLOOD COUNT 4.14 x10e6/uL (4.3-5.7); RED CELL DISTRIBUTION WIDTH 13.7 % (11.7-14.4)
[2017-10-18] MEDS ORDERED: DIATRIZOATE MEGL/DIATRIZOA SOD 30 ML BTL PO ONE (07:43)
[2017-10-18 07:56] LABS: ANION GAP 10.6 mmol/L (8-16); BLOOD UREA NITROGEN 7 mg/dL (7-26); BUN/CREATININE RATIO 10 (6-25); CALCIUM 8.8 mg/dL (8.4-10.2); CARBON DIOXIDE 30 mmol/L (22-29); CHLORIDE 108 mmol/L (98-107); EST GLOMERULAR FILTRATION RATE > 60 ML/MIN (60-); GLUCOSE 106 mg/dL (74-118); POTASSIUM 3.6 mmol/L (3.5-5.1); SODIUM 145 mmol/L (136-145)
[2017-10-18] MEDS: KCL 20MEQ/.9 SOD CHL 1,000 ML IV SCH ×2 (10:00→21:00)
[2017-10-18] MEDS ORDERED: SODIUM CHLORIDE 0.9% 50ML 50 ML ONE (10:51)
[2017-10-18] MEDS ORDERED: IOPAMIDOL 370 MG/ML 200 ML INFUS..BTL INJ ONE (10:52)
--- NOTE | 2017-10-18 11:34 | Diagnostic Imaging Report ---
PROCEDURE: CT ABDOMEN AND PELVIS WITH CONTRAST TECHNIQUE: The abdomen and pelvis were scanned utilizing a multidetector helical scanner from the diaphragm to the lesser trochanter after the IV administration of 100 cc of Isovue 370 and the oral administration of Gastroview. Coronal and sagittal multiplanar reformations were obtained. COMPARISON: CT abdomen and pelvis 10/13/2017. INDICATIONS: BOWL OBSTRUCTION FINDINGS: LOWER THORAX: Normal. HEPATOBILIARY: No focal hepatic lesions. No biliary ductal dilatation. Cholecystectomy clips. SPLEEN: No splenomegaly. PANCREAS: No focal masses or ductal dilatation. ADRENALS: No adrenal nodules. KIDNEYS/URETERS: No hydronephrosis, stones, or solid mass lesions. Simple cysts are present in the kidneys bilaterally. PELVIC ORGANS/BLADDER: Unremarkable. PERITONEUM / RETROPERITONEUM: No free air or fluid. LYMPH NODES: No lymphadenopathy. VESSELS: Atherosclerotic calcifications. GI TRACT: Enteric feeding catheter is present with the tip positioned within the gastric body. Focal region of bowel wall thickening is present in the distal small bowel/cecum, series 301 image 49. No appendix is definitely visualized. Interval decompression of multiple loops of fluid-filled distended small bowel. Air-fluid levels are still present in the mid small bowel, most prominent in the right upper quadrant. Oral contrast is present in the colon. Multiple diverticula are present in the descending and sigmoid colon, without adjacent soft tissue inflammatory changes. No drainable fluid collection. BONES AND SOFT TISSUES: Unremarkable. IMPRESSION: Multiple air-fluid levels in the mid small bowel with contrast present in the colon suggests partial small bowel obstruction. Focal bowel wall thickening in the right lower quadrant in the cecum or distal ileum likely represents the source of obstruction. The findings were discussed with Dr. Ruiz at 1115 hrs. on 10/18/2017. Dictated by: Jaden Guerra M.D. on 10/18/2017 at 11:34 Electronically approved by: Jaden Guerra M.D. on 10/18/2017 at 11:34
--- NOTE | 2017-10-18 18:24 | Diagnostic Imaging Report ---
PROCEDURE: A single AP view of the chest. COMPARISON: Abdominal CT 10/18/2017, KUB 10/17/2017 INDICATIONS: PICC PLACEMENT FINDINGS: Lines/tubes: * Left upper extremity PICC tip overlies the cavoatrial junction. * Nasogastric tube side port projects over the gastric body. Tip extends out of the [id number]. * Right chest wall cardiac device. Lungs: The lungs are moderately inflated. Linear opacities at the lung bases likely represent atelectasis. There is no evidence of pneumonia or pulmonary edema. Pleura: There is no pleural effusion or pneumothorax. Heart and mediastinum: The heart and the mediastinum are unremarkable. Bones: No acute bony abnormality. Upper abdomen: Lucency of the right hemidiaphragm corresponds to distended air-filled colon on prior KUB and CT. IMPRESSION: Tip of the left upper extremity PICC overlies the cavoatrial junction. Dictated by: Irvin Maceil M.D. on 10/18/2017 at 18:23 Electronically approved by: Irvin Maciel M.D. on 10/18/2017 at 18:23
[2017-10-18] MEDS: MORPHINE SULFATE 2 MG/ML SYR IV PRN (18:57)
[2017-10-18] MEDS ORDERED: PERIPHERAL TPN FORMULA 1 BAG IV SCH (20:00)
[2017-10-18] MEDS: BISACODYL 10 MG SUPP PR SCH (22:04)
[2017-10-19] VITALS (19 sets, daily range): BP systolic 83–162; BP diastolic 62–90
[2017-10-19] MEDS: SODIUM CHLORIDE 0.9% 250ML IRRIG IR SCH ×8 (01:15→20:53)
[2017-10-19] MEDS: METRONIDAZOLE 500MG/NS 100ML 100 ML IV SCH ×5 (01:25→23:25)
[2017-10-19] MEDS: PANTOPRAZOL 40MG/SOD CHL 0.9% 50 ML IV SCH ×5 (05:34→23:25)
[2017-10-19] MEDS: CEFTRIAXONE SOD 1 GM VIAL IV SCH ×2 (05:35→18:16)
[2017-10-19] MEDS: BISACODYL 10 MG SUPP PR SCH (08:50)
[2017-10-19] MEDS: KCL 20MEQ/.9 SOD CHL 1,000 ML IV SCH (09:30)
[2017-10-19] MEDS ORDERED: HEPARIN SOD/SOD CHLORIDE 1,000 ML ONE (12:40)
[2017-10-19] MEDS ORDERED: PERIPHERAL TPN FORMULA 1 BAG IV SCH ×2 (13:00→20:00)
[2017-10-19] MEDS ORDERED: DEXAMETHASONE SOD PHOS INJ 4 MG/ML VIAL ONE (13:06)
[2017-10-19] MEDS ORDERED: ROCURONIUM BROMIDE 10 MG/ML 5ML VIAL ONE (13:06)
[2017-10-19] MEDS ORDERED: NEOSTIGMINE 5 MG/5ML SYR ONE (13:06)
[2017-10-19] MEDS ORDERED: ATROPINE SULFATE 1 MG/ML VIAL ONE (13:06)
[2017-10-19] MEDS ORDERED: EPHEDRINE SULFATE INJ 50 MG/10 ML SYR ONE (13:06)
[2017-10-19] MEDS ORDERED: PROPOFOL IV EMULSION 10 MG/ML 20 ML VIAL ONE (13:06)
[2017-10-19] MEDS ORDERED: SEVOFLURANE INHAL SOLN 250 ML PEN BTL ONE (13:06)
[2017-10-19] MEDS ORDERED: ONDANSETRON HCL INJ 2 MG/ML VIAL ONE (13:06)
[2017-10-19] MEDS ORDERED: LIDOCAINE HCL 2% LOCAL INJ 5 ML SDV VIAL INJ ONE (13:06)
[2017-10-19] MEDS ORDERED: CEFTRIAXONE SOD 1 GM VIAL ONE (13:06)
[2017-10-19] MEDS ORDERED: VASOPRESSIN INJ 20 UNIT/ML VIAL ONE (13:06)
[2017-10-19] MEDS ORDERED: METRONIDAZOLE 500MG/NS 100ML 100 ML IV ONE (13:10)
[2017-10-19 13:25] LABS: ABG PH 7.43 (7.31-7.41)
[2017-10-19 13:26] LABS: ABG HCO3 31 mmol/L (23-28); ABG PCO2 48 mmHg (41-51); ABG PO2 228 mmHg (80-105)
[2017-10-19] MEDS ORDERED: FENTANYL CITRATE/PF 100MCG/2 ML INJ ONE (16:23)
[2017-10-19] MEDS ORDERED: MIDAZOLAM HCL 2 MG/2 ML VIAL ONE (16:23)
[2017-10-19] MEDS ORDERED: ACETAMINOPHEN 1000 MG/100 ML IV PRN (16:30)
--- NOTE | 2017-10-19 17:17 | Diagnostic Imaging Report ---
PROCEDURE: A single AP view of the chest. COMPARISON: Chest x-ray 10/18/2017. INDICATIONS: CENTRAL LINE PLACEMENT FINDINGS: Lines/tubes: New right IJ central line with tip at mid SVC. Left PICC line with tip in lower SVC is unchanged. Nasogastric tube courses into the stomach and is unchanged. Right sided pacemaker with 2 intact wires. Lungs: The lungs are moderate inflated. Bibasilar atelectasis, right greater than left. Pleura: Moderate right and small left pleural effusions. Heart and mediastinum: The heart and the mediastinum are unremarkable. Bones: No acute bony abnormality. Abdomen: Partially surgical clips in the upper abdomen is unchanged. IMPRESSION: 1. New right IJ central line with tip at mid SVC. 2. Moderate right and small left pleural effusions with associated atelectasis. Dictated by: Edison Allred M.D. on 10/19/2017 at 17:16 Electronically approved by: Edison Allred M.D. on 10/19/2017 at 17:16
[2017-10-19] MEDS: HYDROMORPHONE 1MG/1ML INJ IV PRN ×2 (18:14→21:48)
[2017-10-19] MEDS: SODIUM CHLORIDE 0.9% 1000ML 1,000 ML IV SCH (18:26)
[2017-10-20] VITALS (45 sets, daily range): BP systolic 90–128; BP diastolic 52–107
[2017-10-20] MEDS: SODIUM CHLORIDE 0.9% 250ML IRRIG IR SCH ×6 (00:39→21:16)
[2017-10-20] MEDS: HYDROMORPHONE 1MG/1ML INJ IV PRN ×5 (00:48→22:04)
[2017-10-20] MEDS: PANTOPRAZOL 40MG/SOD CHL 0.9% 50 ML IV SCH ×4 (04:24→20:42)
[2017-10-20] MEDS: CEFTRIAXONE SOD 1 GM VIAL IV SCH ×2 (05:38→18:00)
[2017-10-20] MEDS: METRONIDAZOLE 500MG/NS 100ML 100 ML IV SCH ×4 (05:38→23:36)
[2017-10-20 06:06] LABS: BASOPHILS % 0.2 % (0.0-1.0); EOSINOPHILS % 0.1 % (0.0-6.0); HEMATOCRIT 35.7 % (38.2-49.6); LYMPHOCYTES # (AUTO) 0.5 (1.0-3.2); LYMPHOCYTES % 6.1 % (18.0-39.1); MEAN CORPUSCULAR HEMOGLOBIN 26.5 pg (28-32); MEAN CORPUSCULAR HGB CONC 30.8 g/dL (31-35); MONOCYTES # (AUTO) 0.6 (0.2-0.8); MONOCYTES % 6.9 % (4.4-11.3); NEUTROPHILS # (AUTO) 7.7 (2.1-6.9); NEUTROPHILS % 86.5 % (38.7-80.0); PLATELET COUNT 184 x10e3/uL (140-360); RED BLOOD COUNT 4.15 x10e6/uL (4.3-5.7); RED CELL DISTRIBUTION WIDTH 13.8 % (11.7-14.4)
[2017-10-20 06:43] LABS: ALANINE AMINOTRANSFERASE 11 IU/L (0-55); ALBUMIN/GLOBULIN RATIO 0.8 (0.8-2.0); ALKALINE PHOSPHATASE 36 IU/L (40-150); ANION GAP 11.3 mmol/L (8-16); BLOOD UREA NITROGEN 14 mg/dL (7-26); BUN/CREATININE RATIO 18 (6-25); CARBON DIOXIDE 26 mmol/L (22-29); CHLORIDE 111 mmol/L (98-107); CREATININE, SERUM 0.79 mg/dL (0.72-1.25); EST GLOMERULAR FILTRATION RATE > 60 ML/MIN (60-); GLUCOSE 125 mg/dL (74-118); POTASSIUM 4.3 mmol/L (3.5-5.1); SODIUM 144 mmol/L (136-145)
[2017-10-20] MEDS: ONDANSETRON HCL INJ 2 MG/ML VIAL IV PRN (07:53)
--- NOTE | 2017-10-20 17:33 | Consultation ---
DATE OF CONSULTATION: October 20, 2017 PULMONARY CONSULTATION REASON FOR CONSULTATION: ICU management. HPI: Mr. Garnica is an 82-year-old male who was admitted by Dr. Ruiz with small-bowel obstruction. The patient underwent ex-lap, lysis of adhesions, right colectomy and sigmoid resection. The patient had right and left colon masses. He is currently doing well and denying any complaints of chest pain or shortness of breath. He has been a smoker for the last 50 years. He used to smoke a pipe. REVIEW OF SYSTEMS GENERAL: Denies any fever or chills. HEAD: Denies any head trauma or head injury. ENT: Denies any earache, nosebleed or throat pain. CVS: Denies any chest pain. RESPIRATORY: Denies any shortness of breath. GI: Denies any nausea or vomiting. OTHER: The rest of the review of systems are negative except as in HPI. PAST MEDICAL HISTORY: Hypertension, hyperlipidemia, coronary artery disease, bladder cancer, prostate cancer, diverticulosis. Also had sick sinus syndrome and had a pacemaker placement per the old chart. History of cholecystectomy, back surgery, right and left knee replacement. FAMILY AND SOCIAL HISTORY: Ex-smoker for 50 years, and he smokes cigars. Denies any alcohol use. ALLERGIES: REVIEWED IN THE CHART. MEDICATIONS: Reviewed. PHYSICAL EXAMINATION VITAL SIGNS: Temperature 97.6, pulse of 68, blood pressure 102/64, respiratory rate of 18, O2 sat 96% on 2 liters nasal cannula. SKIN: Warm and dry. GENERAL APPEARANCE: He is an elderly male. He is not in any respiratory distress. HEENT: Head is atraumatic and normocephalic. Pupils are reactive. NECK: Supple. CHEST: Clear to auscultation bilaterally. HEART: S1 and S2 audible. ABDOMEN: Soft, nontender and nondistended. EXTREMITIES: No clubbing, cyanosis or edema. NEUROLOGIC: Awake and alert. LABS: White count of 8000, hemoglobin 11.0, platelets 184. Chemistry: Sodium 144, potassium 4.3, chloride 111, BUN 14, creatinine 0.79. Blood gas 7.43, pCO2 48, pO2 228. Chest x-ray: I have reviewed the images. It is showing likely evidence of right lower lobe pneumonia. I have compared the images from the . ASSESSMENT AND PLAN: Mr. Garnica is an 82-year-old male status post right colectomy and sigmoid resection. History of 50 years of smoking history. Patient smoked cigars. Chest x-ray is likely showing evidence of right lower lobe pneumonia. Patient is on Rocephin and Flagyl. PLAN 1. I will discontinue the Rocephin and start the patient on aztreonam as the patient is allergic to penicillin. Zosyn would be a good choice; however, he is allergic to penicillin. This is to cover the possible hospital-acquired pneumonia. Postoperative management per Dr. Ruiz's recommendations. 2. Patient will be in ICU. Oxygen to keep the O2 sat more than or equal to 92%. Thank you for this consult. Job#: [id number]
[2017-10-20] MEDS: SODIUM CHLORIDE 0.9% 1000ML 1,000 ML IV SCH (19:07)
[2017-10-20] MEDS: CENTRAL TPN FORMULA 1 BAG IV SCH (21:05)
[2017-10-20] MEDS ORDERED: SODIUM CHLORIDE 0.9% 50ML 50 ML ONE (22:47)
[2017-10-20] MEDS: AZTREONAM 1 GM/NS 50 ML 50 ML IV SCH (22:52)
[2017-10-21] VITALS (35 sets, daily range): BP systolic 106–130; BP diastolic 62–93
[2017-10-21] MEDS: PANTOPRAZOL 40MG/SOD CHL 0.9% 50 ML IV SCH ×5 (00:32→19:53)
[2017-10-21] MEDS: SODIUM CHLORIDE 0.9% 250ML IRRIG IR SCH ×6 (00:41→22:50)
[2017-10-21] MEDS: HYDROMORPHONE 1MG/1ML INJ IV PRN ×3 (04:12→17:01)
[2017-10-21] MEDS ORDERED: SODIUM CHLORIDE 0.9% 50ML 50 ML ONE (04:52)
[2017-10-21] MEDS: CEFTRIAXONE SOD 1 GM VIAL IV SCH ×2 (05:11→18:06)
[2017-10-21] MEDS: METRONIDAZOLE 500MG/NS 100ML 100 ML IV SCH ×3 (05:11→17:05)
[2017-10-21] MEDS: AZTREONAM 1 GM/NS 50 ML 50 ML IV SCH ×3 (06:01→23:00)
[2017-10-21 06:02] LABS: BASOPHILS % 0.2 % (0.0-1.0); EOSINOPHILS # (AUTO) 0.1 (0.0-0.4); EOSINOPHILS % 1.1 % (0.0-6.0); HEMATOCRIT 32.4 % (38.2-49.6); LYMPHOCYTES # (AUTO) 0.5 (1.0-3.2); MEAN CORPUSCULAR HEMOGLOBIN 26.5 pg (28-32); MEAN CORPUSCULAR HGB CONC 30.9 g/dL (31-35); MEAN CORPUSCULAR VOLUME 85.9 fL (81-99); MONOCYTES # (AUTO) 0.7 (0.2-0.8); MONOCYTES % 7.4 % (4.4-11.3); NEUTROPHILS # (AUTO) 7.9 (2.1-6.9); NEUTROPHILS % 85.8 % (38.7-80.0); PLATELET COUNT 177 x10e3/uL (140-360); RED BLOOD COUNT 3.77 x10e6/uL (4.3-5.7)
[2017-10-21 06:23] LABS: ALANINE AMINOTRANSFERASE 10 IU/L (0-55); ALBUMIN 1.9 g/dL (3.5-5.0); ALBUMIN/GLOBULIN RATIO 0.7 (0.8-2.0); ALKALINE PHOSPHATASE 44 IU/L (40-150); ANION GAP 9.3 mmol/L (8-16); BLOOD UREA NITROGEN 17 mg/dL (7-26); BUN/CREATININE RATIO 25 (6-25); CALCIUM 8.3 mg/dL (8.4-10.2); CARBON DIOXIDE 26 mmol/L (22-29); CHLORIDE 112 mmol/L (98-107); CREATININE, SERUM 0.69 mg/dL (0.72-1.25); EST GLOMERULAR FILTRATION RATE > 60 ML/MIN (60-); GLUCOSE 134 mg/dL (74-118); POTASSIUM 4.3 mmol/L (3.5-5.1); SODIUM 143 mmol/L (136-145)
[2017-10-21 08:18] LABS: BAND NEUTROPHILS % (MANUAL) 2 %; EOSINOPHILS % (MANUAL) 1 % (0-7); LYMPHOCYTES % (MANUAL) 5 % (19-48); METAMYELOCYTES % (MANUAL) 1 % (0-0); NEUTROPHILS % (MANUAL) 91 % (40-74); PLATELET ESTIMATE ADEQUATE; PLATELET MORPHOLOGY COMMENT NORMAL; RBC MORPHOLOGY COMMENT NORMAL
[2017-10-21] MEDS: SODIUM CHLORIDE 0.9% 1000ML 1,000 ML IV SCH (12:22)
[2017-10-21] MEDS: CENTRAL TPN FORMULA 1 BAG IV SCH (20:20)
--- NOTE | 2017-10-21 22:40 | Diagnostic Imaging Report ---
EXAM: ABDOMEN-1VIEW (KUB), supine INDICATION: NG placement COMPARISON: KUB October 17, 2017 FINDINGS: LINES/TUBES: The tip of the nasogastric tube terminates in expected location of the proximal stomach. BOWEL PATTERN: Poor visualization of the abdomen secondary to motion. The stomach and bowel are distended. SOFT TISSUES: Incomplete evaluation for free peritoneal air. LUNG BASES: Not included BONES: No acute findings. IMPRESSION: Nasogastric tube terminates in expected location of the proximal stomach. Signed by: Dr. Renay Paez M.D. on 10/21/2017 10:37 PM
[2017-10-22] VITALS (7 sets, daily range): BP systolic 123–161; BP diastolic 65–82
[2017-10-22] MEDS: PANTOPRAZOL 40MG/SOD CHL 0.9% 50 ML IV SCH ×2 (01:32→07:27)
[2017-10-22] MEDS: SODIUM CHLORIDE 0.9% 250ML IRRIG IR SCH ×6 (02:00→21:31)
[2017-10-22] MEDS: SODIUM CHLORIDE 0.9% 1000ML 1,000 ML IV SCH (04:26)
[2017-10-22] MEDS: HYDROMORPHONE 1MG/1ML INJ IV PRN ×4 (05:12→18:26)
[2017-10-22] MEDS: METRONIDAZOLE 500MG/NS 100ML 100 ML IV SCH ×4 (05:22→17:46)
[2017-10-22] MEDS: CEFTRIAXONE SOD 1 GM VIAL IV SCH (05:22)
[2017-10-22] MEDS: AZTREONAM 1 GM/NS 50 ML 50 ML IV SCH ×3 (06:25→21:31)
[2017-10-22 06:53] LABS: BASOPHILS % 0.3 % (0.0-1.0); EOSINOPHILS # (AUTO) 0.2 (0.0-0.4); EOSINOPHILS % 1.7 % (0.0-6.0); HEMATOCRIT 30.9 % (38.2-49.6); HEMOGLOBIN 9.5 g/dL (14.0-18.0); LYMPHOCYTES # (AUTO) 0.6 (1.0-3.2); LYMPHOCYTES % 5.2 % (18.0-39.1); MEAN CORPUSCULAR HEMOGLOBIN 26.3 pg (28-32); MEAN CORPUSCULAR HGB CONC 30.7 g/dL (31-35); MEAN CORPUSCULAR VOLUME 85.6 fL (81-99); MONOCYTES # (AUTO) 0.8 (0.2-0.8); MONOCYTES % 7.3 % (4.4-11.3); NEUTROPHILS # (AUTO) 9.1 (2.1-6.9); PLATELET COUNT 179 x10e3/uL (140-360); RED BLOOD COUNT 3.61 x10e6/uL (4.3-5.7)
[2017-10-22 07:26] LABS: ALANINE AMINOTRANSFERASE 9 IU/L (0-55); ALBUMIN 1.8 g/dL (3.5-5.0); ALBUMIN/GLOBULIN RATIO 0.6 (0.8-2.0); ALKALINE PHOSPHATASE 34 IU/L (40-150); BLOOD UREA NITROGEN 15 mg/dL (7-26); BUN/CREATININE RATIO 25 (6-25); CALCIUM 8.7 mg/dL (8.4-10.2); CARBON DIOXIDE 28 mmol/L (22-29); CHLORIDE 112 mmol/L (98-107); CREATININE, SERUM 0.59 mg/dL (0.72-1.25); EST GLOMERULAR FILTRATION RATE > 60 ML/MIN (60-); GLUCOSE 138 mg/dL (74-118); SODIUM 145 mmol/L (136-145)
[2017-10-22] MEDS ORDERED: FUROSEMIDE INJ 10 MG/ML 2 ML VIAL IV NR (13:30)
[2017-10-22] MEDS: BISACODYL 10 MG SUPP PR SCH (21:24)
[2017-10-22] MEDS: CENTRAL TPN FORMULA 1 BAG IV SCH (21:29)
[2017-10-23] VITALS (52 sets, daily range): BP systolic 109–176; BP diastolic 61–99
[2017-10-23] MEDS: HYDROMORPHONE 1MG/1ML INJ IV PRN ×6 (01:14→20:25)
[2017-10-23] MEDS: SODIUM CHLORIDE 0.9% 250ML IRRIG IR SCH ×6 (01:25→21:49)
[2017-10-23] MEDS: METRONIDAZOLE 500MG/NS 100ML 100 ML IV SCH ×2 (01:27→06:31)
[2017-10-23] MEDS: AZTREONAM 1 GM/NS 50 ML 50 ML IV SCH ×3 (06:31→21:49)
[2017-10-23] MEDS ORDERED: FUROSEMIDE INJ 10 MG/ML 2 ML VIAL IV ONE (07:45)
[2017-10-23] MEDS ORDERED: FUROSEMIDE INJ 10 MG/ML 2 ML VIAL ONE (07:45)
[2017-10-23] MEDS ORDERED: HEPARIN 25,000 UNIT/D5W 250ML 250 ML IV SCH (08:00)
[2017-10-23 08:11] LABS: ABG PH 7.36 (7.31-7.41)
[2017-10-23 08:12] LABS: ABG HCO3 33 mmol/L (23-28); ABG PCO2 59 mmHg (41-51); ABG PO2 109 mmHg (80-105)
[2017-10-23 08:22] LABS: BASOPHILS % 0.3 % (0.0-1.0); EOSINOPHILS # (AUTO) 0.2 (0.0-0.4); EOSINOPHILS % 2.3 % (0.0-6.0); HEMOGLOBIN 9.8 g/dL (14.0-18.0); LYMPHOCYTES # (AUTO) 0.6 (1.0-3.2); LYMPHOCYTES % 5.8 % (18.0-39.1); MEAN CORPUSCULAR HEMOGLOBIN 26.1 pg (28-32); MEAN CORPUSCULAR HGB CONC 30.6 g/dL (31-35); MEAN CORPUSCULAR VOLUME 85.3 fL (81-99); MONOCYTES # (AUTO) 0.8 (0.2-0.8); MONOCYTES % 7.7 % (4.4-11.3); NEUTROPHILS # (AUTO) 8.3 (2.1-6.9); NEUTROPHILS % 83.4 % (38.7-80.0); PLATELET COUNT 204 x10e3/uL (140-360); RED BLOOD COUNT 3.75 x10e6/uL (4.3-5.7); RED CELL DISTRIBUTION WIDTH 14.1 % (11.7-14.4)
--- NOTE | 2017-10-23 08:26 | Diagnostic Imaging Report ---
EXAM: ABDOMEN ACUTE SERIES W/PA CXR, supine INDICATION: SBO, terminal ileitis COMPARISON: KUB from 10/21/[address] abdomen and pelvis from 10/18/2017 FINDINGS: LINES/TUBES: The tip of the nasogastric overlying the proximal stomach, unchanged. Right adjacent venous catheter with tip overlying the lower SVC. Left PICC with tip overlying the mid SVC. 2-lead pacemaker device overlying the right upper hemithorax. The atrial lead appears this lodging the lower body. The ventricular lead appears to overlying the right ventricular apex. BOWEL PATTERN: Persistent dilatation of the small and large bowel may represent postoperative ileus. SOFT TISSUES: There appears to be free air in the upper abdomen which may be postoperative. Persistent elevation of the right hemidiaphragm. Right upper quadrant cholecystectomy clips. Surgical zhang along the lower abdomen and upper pelvis at midline. Surgical clips overlying the right lower quadrant. LUNG/PLEURA: Small bilateral pleural effusions with adjacent atelectasis, unchanged. BONES: No acute findings. IMPRESSION: Interval surgical intervention with persistent dilatation of the small and large bowel, likely postoperative ileus. Small amount of post operative pneumoperitoneum. Zhang overlying the lower abdomen and upper pelvis at midline. Curvilinear C shapes overlying the right lower quadrant likely clips/zhang. [place] can have a similar appearance. Correlate with surgical report. Signed by: Dr. Nelly Hutton M.D. on 10/23/2017 8:47 AM
[2017-10-23 08:35] LABS: ABG HCO3 33 mmol/L (23-28); ABG PCO2 59 mmHg (41-51); ABG PH 7.36 (7.31-7.41); ABG PO2 109 mmHg (80-105)
[2017-10-23 08:41] LABS: ALANINE AMINOTRANSFERASE 10 IU/L (0-55); ALBUMIN/GLOBULIN RATIO 0.6 (0.8-2.0); ALKALINE PHOSPHATASE 38 IU/L (40-150); ANION GAP 8.9 mmol/L (8-16); BLOOD UREA NITROGEN 18 mg/dL (7-26); BUN/CREATININE RATIO 30 (6-25); CALCIUM 8.8 mg/dL (8.4-10.2); CARBON DIOXIDE 31 mmol/L (22-29); CHLORIDE 109 mmol/L (98-107); CREATININE, SERUM 0.61 mg/dL (0.72-1.25); EST GLOMERULAR FILTRATION RATE > 60 ML/MIN (60-); GLUCOSE 127 mg/dL (74-118); POTASSIUM 3.9 mmol/L (3.5-5.1); SODIUM 145 mmol/L (136-145)
[2017-10-23] MEDS: ENOXAPARIN SODIUM INJ 100 MG/ML SYR SC SCH ×2 (08:45→21:50)
--- NOTE | 2017-10-23 09:26 | Diagnostic Imaging Report ---
ADDENDUM #1 Addendum: Small low attenuation bilateral pleural effusions. Signed by: Dr. Nelly Hutton M.D. on 10/24/2017 1:35 PM ORIGINAL REPORT EXAM: CT Chest WITH contrast 10/23/2017 7:53 AM INDICATION: \S\LOW SATS, ELEVATED RR, pe protocol \S\[id number] \S\0630 \S\Y COMPARISON: Chest radiograph from 10/19/2017 TECHNIQUE: Abdomen and pelvis were scanned utilizing a multidetector helical scanner from the lung base to the pubic symphysis after administration of IV contrast. Pulmonary embolism protocol was obtained. Coronal and sagittal reformations were obtained. IV CONTRAST: 100 mL of Isovue-370 ORAL CONTRAST: None COMPLICATIONS: None RADIATION DOSE: Total DLP: 519.4 mGy*cm Estimated effective dose: (DLP x 0.015 x size factor) mSv CTDIvol has been reviewed. It is below the limits set by the Radiation Protocol Committee (RPC). FINDINGS: LINES/ TUBES: NG/O G-tube is partially visualized but is within the stomach. 2-lead pacemaker device in the right upper chest with leads in the right atrium and right ventricular apex. Right IJ central venous catheter with tip in the mid SVC. PULMONARY ARTERIES: Multiple occlusive and nonocclusive filling defects within segmental and subsegmental branches of the right upper and lower lobes. There is also small segmental and subsegmental filling defects within the left lower lobe No filling defects within the main pulmonary artery, right and left main pulmonary arteries. The pulmonary artery is moderate to severely enlarged measuring 4.8 cm and suggestive of severe pulmonary hypertension. No RV strain. LUNGS AND AIRWAYS: Large consolidation in the right lower lobe with associated volume loss and complete filling with the pre of the right mainstem bronchus consistent with aspiration. Pleural-based groundglass opacities in the anterior right upper lobe on series 2, image 62. Small consolidation in the left lower lobe also suggestive of aspiration. Bilateral interstitial edema. PLEURA: The pleural spaces are clear. HEART AND MEDIASTINUM: The thyroid gland is normal. No mediastinal, hilar or axillary lymphadenopathy. Biatrial enlargement. There is no pericardial effusion. Diffuse coronary artery calcifications. 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 Mild scattered atherosclerotic calcifications of the descending thoracic aorta. UPPER ABDOMEN: Recent bowel surgery with persistent mild dilatation of the partially visualized loops of bowel and residual postoperative pneumoperitoneum. BONES: Multilevel degenerative changes of the thoracic spine. SOFT TISSUES: Unremarkable. IMPRESSION: 1. Pulmonary embolism within multiple segmental and subsegmental pulmonary artery branches, bilaterally. 2. Moderate to severe enlargement of the pulmonary artery suggestive of pulmonary hypertension. No RV strain on limited evaluation. 3. Right upper lobe small pulmonary infarct. 4. Bilateral interstitial edema. 5. Large bibasilar aspiration, right greater than left with large amount of debris in the right lower lobe bronchi. Findings were communicated to Dr Ponce on 10/23/2017 at 9:15 AM. Signed by: Dr. Nelly Hutton M.D. on 10/23/2017 9:23 AM
[2017-10-23] MEDS ORDERED: ASPIRIN 81 MG CHEW TAB PO NR (09:30)
[2017-10-23] MEDS: PANTOPRAZOLE 40 MG 10ML VIAL IV SCH (10:20)
[2017-10-23] MEDS: BISACODYL 10 MG SUPP PR SCH (13:50)
[2017-10-23] MEDS ORDERED: BISACODYL 10 MG SUPP PR ONE (14:41)
[2017-10-23] MEDS: BALSAM PERU/CASTOR OIL 60 GM OINT...G. TP SCH (17:00)
[2017-10-23] MEDS ORDERED: SODIUM CHLORIDE 0.9% 50ML 50 ML ONE (18:51)
[2017-10-23] MEDS ORDERED: IOPAMIDOL 370 MG/ML 200 ML INFUS..BTL INJ ONE (18:51)
[2017-10-23] MEDS: CENTRAL TPN FORMULA 1 BAG IV SCH (20:00)
[2017-10-23] MEDS ORDERED: DEXTROSE 10% 1,000 ML IV SCH (21:30)
[2017-10-24] VITALS (104 sets, daily range): BP systolic 47–144; BP diastolic 33–89
[2017-10-24] MEDS: SODIUM CHLORIDE 0.9% 250ML IRRIG IR SCH ×6 (01:15→20:44)
[2017-10-24] MEDS: AZTREONAM 1 GM/NS 50 ML 50 ML IV SCH ×3 (05:57→22:28)
[2017-10-24] MEDS: PANTOPRAZOLE 40 MG 10ML VIAL IV SCH (09:00)
[2017-10-24] MEDS: ENOXAPARIN SODIUM INJ 100 MG/ML SYR SC SCH ×2 (09:00→20:44)
[2017-10-24] MEDS: BALSAM PERU/CASTOR OIL 60 GM OINT...G. TP SCH ×2 (09:00→14:31)
[2017-10-24 11:56] LABS: ABG PH 7.33 (7.31-7.41)
[2017-10-24 11:57] LABS: ABG HCO3 36 mmol/L (23-28); ABG PCO2 68 mmHg (41-51); ABG PO2 56 mmHg (80-105)
[2017-10-24] MEDS: MIDAZOLAM HCL 25 MG in SODIUM CHLORIDE 0.9% 50ML 45 ML IV PRN ×2 (12:45→19:38)
[2017-10-24] MEDS ORDERED: HYDROMORPHONE 20MG/ NS 100ML IV PRN (13:00)
[2017-10-24] MEDS ORDERED: MIDAZOLAM HCL 2 MG/2 ML VIAL ONE (13:02)
[2017-10-24] MEDS ORDERED: HYDROMORPHONE 100 ML IV PRN (13:15)
--- NOTE | 2017-10-24 13:26 | Operative Report ---
DATE OF PROCEDURE: October 24, 2017 PROCEDURE: Endotracheal intubation. PREPROCEDURE DIAGNOSIS: Acute hypoxic respiratory failure. POSTPROCEDURE DIAGNOSIS: Acute hypoxic respiratory failure. PROCEDURE IN DETAIL: After 30 mg of etomidate, the patient was intubated with 7.5 ET tube with MAC 3 blade in first attempt. End-tidal CO2 color change was seen. Postprocedure chest x-ray is pending. COMPLICATIONS: None. Job#: [id number]
[2017-10-24] MEDS ORDERED: MIDAZOLAM HCL 2 MG/2 ML VIAL IV NR (13:30)
--- NOTE | 2017-10-24 13:35 | Diagnostic Imaging Report ---
ADDENDUM #1 Abdomen: The endotracheal tube is in adequate position with tip 2.7 cm above the mati. Signed by: Dr. Nelly Hutton M.D. on 10/24/2017 3:17 PM ORIGINAL REPORT EXAMINATION: CHEST SINGLE (PORTABLE) INDICATION: \S\post intubation \S\[id number] \S\1240 \S\Y COMPARISON: CT chest from 10/23/2017 and chest radiograph from 10/19/2017 FINDINGS: AP view TUBES and LINES: Tubes and lines are unchanged. 2-lead pacemaker, endotracheal tube, NG/NG tube, and right IJ central venous catheter. The NG OG tube tip overlies the distal esophagus, the common advancement. LUNGS: Left costophrenic angle were not included on this exam. Persistent large right lower lobe consolidation. Right upper lobe pulmonary infarct not well seen on this exam. PLEURA: Small bilateral pleural effusions. HEART AND MEDIASTINUM: Enlargement of the cardiac silhouette. Pulmonary arteries are enlarged. Tortuous thoracic aorta with aneurysm of the ascending thoracic aorta. BONES AND SOFT TISSUES: No acute osseous lesion. Soft tissues are unremarkable. UPPER ABDOMEN: No free air under the diaphragm. IMPRESSION: Stable bilateral pleural effusions and large right lower lobe consolidation. Signed by: Dr. Nelly Hutton M.D. on 10/24/2017 1:32 PM
[2017-10-24] MEDS ORDERED: VASOPRESSIN 100 UNIT in DEXTROSE 5% 100ML 100 ML IV PRN (14:30)
[2017-10-24] MEDS: HYDROMORPHONE 100 ML IV PRN (17:20)
[2017-10-24] MEDS ORDERED: ETOMIDATE 40 MG/ 20ML VIAL IV ONE (17:41)
[2017-10-24] MEDS ORDERED: SUCCINYLCHOLINE CHLORIDE 20 MG/ML 10ML VIAL ONE (17:41)
[2017-10-24] MEDS: CENTRAL TPN FORMULA 1 BAG IV SCH (20:49)
[2017-10-25] VITALS (57 sets, daily range): BP systolic 73–129; BP diastolic 47–87
[2017-10-25] MEDS: SODIUM CHLORIDE 0.9% 250ML IRRIG IR SCH ×6 (01:52→22:59)
[2017-10-25] MEDS: AZTREONAM 1 GM/NS 50 ML 50 ML IV SCH ×3 (05:43→22:59)
--- NOTE | 2017-10-25 05:53 | Diagnostic Imaging Report ---
EXAM: CHEST SINGLE (NOT PORTABLE), AP 1 view INDICATION: Intubated COMPARISON: AP view of the chest October 24, 2017 FINDINGS: LINES/TUBES: Endotracheal tube terminates approximately 2 cm above the mati. Stable position of left approach PICC and partially visualized nasal/orogastric tube. LUNGS: Large right lower lobe consolidation. PLEURA: Small bilateral pleural effusions. HEART AND MEDIASTINUM: Stable appearance with enlarged pulmonary arteries. BONES AND SOFT TISSUES: No acute findings. IMPRESSION: Stable appearance of the chest. Signed by: Dr. Renay Paez M.D. on 10/25/2017 5:49 AM
[2017-10-25 06:17] LABS: BASOPHILS % 0.3 % (0.0-1.0); EOSINOPHILS # (AUTO) 0.3 (0.0-0.4); HEMATOCRIT 28.5 % (38.2-49.6); HEMOGLOBIN 8.6 g/dL (14.0-18.0); LYMPHOCYTES # (AUTO) 0.7 (1.0-3.2); LYMPHOCYTES % 7.3 % (18.0-39.1); MEAN CORPUSCULAR HEMOGLOBIN 28.3 pg (28-32); MEAN CORPUSCULAR HGB CONC 30.2 g/dL (31-35); MEAN CORPUSCULAR VOLUME 93.8 fL (81-99); MONOCYTES # (AUTO) 0.9 (0.2-0.8); MONOCYTES % 8.8 % (4.4-11.3); NEUTROPHILS % 79.5 % (38.7-80.0); PLATELET COUNT 210 x10e3/uL (140-360); RED BLOOD COUNT 3.04 x10e6/uL (4.3-5.7); RED CELL DISTRIBUTION WIDTH 15.1 % (11.7-14.4)
[2017-10-25 07:52] LABS: ALANINE AMINOTRANSFERASE 13 IU/L (0-55); ALBUMIN 1.6 g/dL (3.5-5.0); ALBUMIN/GLOBULIN RATIO 0.5 (0.8-2.0); ALKALINE PHOSPHATASE 40 IU/L (40-150); ANION GAP 7.9 mmol/L (8-16); BUN/CREATININE RATIO 46 (6-25); CALCIUM 8.7 mg/dL (8.4-10.2); CARBON DIOXIDE 32 mmol/L (22-29); CHLORIDE 106 mmol/L (98-107); CREATININE, SERUM 0.65 mg/dL (0.72-1.25); EST GLOMERULAR FILTRATION RATE > 60 ML/MIN (60-); GLUCOSE 124 mg/dL (74-118); POTASSIUM 3.9 mmol/L (3.5-5.1); SODIUM 142 mmol/L (136-145); TRIGLYCERIDES 50 MG/DL (0-149)
[2017-10-25 07:58] LABS: BLOOD UREA NITROGEN 30 mg/dL (7-26)
[2017-10-25] MEDS: PANTOPRAZOLE 40 MG 10ML VIAL IV SCH (08:38)
[2017-10-25] MEDS: ENOXAPARIN SODIUM INJ 100 MG/ML SYR SC SCH ×2 (08:38→22:59)
[2017-10-25 09:43] LABS: ABG HCO3 36 mmol/L (23-28); ABG PCO2 52 mmHg (41-51); ABG PH 7.44 (7.31-7.41); ABG PO2 89 mmHg (80-105)
[2017-10-25] MEDS: VANCOMYCIN 1GM/NS 250 ML 250 ML IV SCH ×2 (12:27→22:59)
[2017-10-25] MEDS ORDERED: LIDOCAINE HCL 2% 30 ML TUBE ONE (13:28)
[2017-10-25] MEDS ORDERED: OXYMETAZOLINE HCL 0.05% NAS 1 SPRAY BTL ONE (13:28)
[2017-10-25] MEDS ORDERED: EPINEPHRINE HCL INJ 1 MG/ML AMP ONE (13:28)
[2017-10-25] MEDS ORDERED: LIDOCAINE HCL 4% 50 ML BTL ONE (13:28)
[2017-10-25] MEDS: MIDAZOLAM HCL 25 MG in SODIUM CHLORIDE 0.9% 50ML 45 ML IV PRN ×3 (14:00→23:45)
[2017-10-25] MEDS ORDERED: PROPOFOL IV EMULSION 10 MG/ML 20 ML VIAL IV ONE (14:45)
--- NOTE | 2017-10-25 16:09 | Operative Report ---
DATE OF PROCEDURE: October 25, 2017 PREPROCEDURE DIAGNOSES 1. Acute hypoxic respiratory failure. 2. Right lower lobe pneumonia. POSTPROCEDURE DIAGNOSIS: Right lower lobe pneumonia. PROCEDURE PERFORMED: Bronchoscopy with bronchoalveolar lavage. PROCEDURE IN DETAIL: The bronchoscope was advanced through the ET tube, after 10 mg of IV propofol was given. Both lungs were examined to the segmental level. The right lower lobe had thick, purulent secretions, which were suctioned clean. Mucous plugs were suctioned as well, and samples were sent for fungus, Gram stain, culture and cell count. No endobronchial lesion was seen in either lung. Job#: [id number]
[2017-10-25 16:12] LABS: BODY FLUID APPEARANCE TURBID; BODY FLUID COLOR COLORLESS
[2017-10-25 16:13] LABS: RBC,BODY FLUID 48 cells/uL; WBC,BODY FLUID 647 cells/uL
[2017-10-25 16:14] LABS: BODY FLUID TYPE BAL
--- NOTE | 2017-10-25 16:21 | Diagnostic Imaging Report ---
PROCEDURE: A single AP view of the chest. COMPARISON: 10/25/17 at 0528 hours INDICATIONS: BRONCHOSCOPY FINDINGS: Lines/tubes: Stable right chest wall cardiac device, endotracheal tube, left PICC, and partially visualized nasogastric tube. Lungs and pleural: Unchanged pulmonary mass or congestion and mild interstitial edema. Unchanged retrocardiac opacification. Unchanged bilateral pleural effusions, right more than left. No visible pneumothorax. Heart and mediastinum: The cardiac silhouette is enlarged. Bones: No acute bony abnormality. IMPRESSION: No significant interval change from prior x-ray. Unchanged pulmonary vascular congestion, mild interstitial edema, and bilateral pleural effusions, right greater than left. Underlying infiltrate in the lower lung ware cannot be excluded. Dictated by: Edgard Laureano M.D. on 10/25/2017 at 16:20 Electronically approved by: Edgard Laureano M.D. on 10/25/2017 at 16:20
[2017-10-25 17:33] LABS: LYMPHOCYTES,BODY FLUID 15 %; MONO/MACROPHG,BODY FLUID 5 %; NEUTROPHILS,BODY FLUID 80 %
[2017-10-25] MEDS: CENTRAL TPN FORMULA 1 BAG IV SCH (20:30)
[2017-10-26] VITALS (54 sets, daily range): BP systolic 85–125; BP diastolic 43–91
[2017-10-26] MEDS: SODIUM CHLORIDE 0.9% 250ML IRRIG IR SCH ×6 (01:15→21:36)
[2017-10-26] MEDS: MIDAZOLAM HCL 25 MG in SODIUM CHLORIDE 0.9% 50ML 45 ML IV PRN (04:00)
[2017-10-26 06:05] LABS: BASOPHILS % 0.3 % (0.0-1.0); EOSINOPHILS # (AUTO) 0.3 (0.0-0.4); EOSINOPHILS % 2.3 % (0.0-6.0); HEMATOCRIT 27.3 % (38.2-49.6); HEMOGLOBIN 8.4 g/dL (14.0-18.0); LYMPHOCYTES % 8.7 % (18.0-39.1); MEAN CORPUSCULAR HEMOGLOBIN 26.3 pg (28-32); MEAN CORPUSCULAR HGB CONC 30.8 g/dL (31-35); MEAN CORPUSCULAR VOLUME 85.6 fL (81-99); MONOCYTES # (AUTO) 0.9 (0.2-0.8); MONOCYTES % 8.1 % (4.4-11.3); NEUTROPHILS # (AUTO) 8.9 (2.1-6.9); NEUTROPHILS % 79.2 % (38.7-80.0); PLATELET COUNT 267 x10e3/uL (140-360); RED BLOOD COUNT 3.19 x10e6/uL (4.3-5.7); RED CELL DISTRIBUTION WIDTH 14.4 % (11.7-14.4)
[2017-10-26 06:37] LABS: BLOOD UREA NITROGEN 30 mg/dL (7-26); BUN/CREATININE RATIO 46 (6-25); CALCIUM 8.6 mg/dL (8.4-10.2); CARBON DIOXIDE 31 mmol/L (22-29); CHLORIDE 112 mmol/L (98-107); CREATININE, SERUM 0.65 mg/dL (0.72-1.25); EST GLOMERULAR FILTRATION RATE > 60 ML/MIN (60-); GLUCOSE 120 mg/dL (74-118); SODIUM 149 mmol/L (136-145)
[2017-10-26] MEDS: AZTREONAM 1 GM/NS 50 ML 50 ML IV SCH ×2 (06:44→14:21)
--- NOTE | 2017-10-26 08:49 | Diagnostic Imaging Report ---
PROCEDURE: A single AP view of the chest. COMPARISON: Patients [facility], DX, CHEST SINGLE (PORTABLE), 10/25/2017, 15:30. INDICATIONS: INTUBATED FINDINGS: Lines/tubes: Right IJ central line, right chest wall subclavian dual-lead cardiac device, endotracheal tube and nasogastric tube are again noted. Lungs: Worsening pulmonary edema. Pleura: Increase in size of the bilateral pleural effusions; right greater than left. Heart and mediastinum: The heart and the mediastinum are unremarkable. Bones: No acute bony abnormality. IMPRESSION: Worsening pulmonary edema with bilateral pleural effusions. Sina Moise D.O. Dictated by: Sina Moise D.O. on 10/26/2017 at 8:48 Electronically approved by: Sina Moise D.O. on 10/26/2017 at 8:48
[2017-10-26] MEDS: PANTOPRAZOLE 40 MG 10ML VIAL IV SCH (09:00)
[2017-10-26] MEDS: ENOXAPARIN SODIUM INJ 100 MG/ML SYR SC SCH ×2 (09:00→21:36)
[2017-10-26] MEDS: VANCOMYCIN 1GM/NS 250 ML 250 ML IV SCH ×2 (10:13→21:36)
[2017-10-26] MEDS: BALSAM PERU/CASTOR OIL 60 GM OINT...G. TP SCH (10:13)
[2017-10-26] MEDS ORDERED: ACETAMINOPHEN 325 MG/10 ML UDC NG PRN (10:15)
[2017-10-26] MEDS: FUROSEMIDE INJ 10 MG/ML 4 ML VIAL IV SCH (10:45)
--- NOTE | 2017-10-26 13:18 | Diagnostic Imaging Report ---
PROCEDURE:US CHEST (INCL MEDIASTINUM) COMPARISON:Patients [facility], DX, CHEST SINGLE (PORTABLE), 10/26/2017, 5:44. INDICATIONS:Pleural Effusion FINDINGS:Examination shows mild to moderate right pleural effusion and small left pleural effusion. Small amount of ascites is noted in the visualized left abdomen. CONCLUSION: 1. Mild to moderate right pleural effusion. 2. Small left pleural effusion. 3. Small amount of ascites in the left abdomen Marty Hernandez M.D. Dictated by: Marty Hernandez M.D. on 10/26/2017 at 13:18 Electronically approved by: Marty Hernandez M.D. on 10/26/2017 at 13:18
[2017-10-26] MEDS: HYDROMORPHONE 100 ML IV PRN (20:00)
[2017-10-26] MEDS: CENTRAL TPN FORMULA 1 BAG IV SCH (21:36)
[2017-10-27] VITALS (53 sets, daily range): BP systolic 85–172; BP diastolic 43–129
[2017-10-27] MEDS: ACETAMINOPHEN 325 MG SUPP PR PRN ×3 (00:32→23:15)
[2017-10-27] MEDS: AZTREONAM 1 GM/NS 50 ML 50 ML IV SCH ×4 (00:59→21:36)
[2017-10-27] MEDS: SODIUM CHLORIDE 0.9% 250ML IRRIG IR SCH ×4 (01:17→13:15)
[2017-10-27 05:23] LABS: BASOPHILS % 0.4 % (0.0-1.0); EOSINOPHILS # (AUTO) 0.2 (0.0-0.4); EOSINOPHILS % 2.3 % (0.0-6.0); HEMATOCRIT 25.3 % (38.2-49.6); LYMPHOCYTES # (AUTO) 0.8 (1.0-3.2); LYMPHOCYTES % 10.1 % (18.0-39.1); MEAN CORPUSCULAR HEMOGLOBIN 26.5 pg (28-32); MEAN CORPUSCULAR HGB CONC 30.4 g/dL (31-35); MEAN CORPUSCULAR VOLUME 86.9 fL (81-99); MONOCYTES # (AUTO) 0.7 (0.2-0.8); MONOCYTES % 8.6 % (4.4-11.3); NEUTROPHILS # (AUTO) 6.4 (2.1-6.9); NEUTROPHILS % 77.6 % (38.7-80.0); PLATELET COUNT 248 x10e3/uL (140-360); RED BLOOD COUNT 2.91 x10e6/uL (4.3-5.7); RED CELL DISTRIBUTION WIDTH 14.6 % (11.7-14.4)
[2017-10-27 05:27] LABS: HEMOGLOBIN 7.7 g/dL (14.0-18.0)
[2017-10-27 05:38] LABS: ANION GAP 10.9 mmol/L (8-16); BLOOD UREA NITROGEN 30 mg/dL (7-26); BUN/CREATININE RATIO 46 (6-25); CALCIUM 8.5 mg/dL (8.4-10.2); CARBON DIOXIDE 30 mmol/L (22-29); CHLORIDE 111 mmol/L (98-107); CREATININE, SERUM 0.65 mg/dL (0.72-1.25); EST GLOMERULAR FILTRATION RATE > 60 ML/MIN (60-); GLUCOSE 114 mg/dL (74-118); POTASSIUM 3.9 mmol/L (3.5-5.1); SODIUM 148 mmol/L (136-145)
--- NOTE | 2017-10-27 06:56 | Diagnostic Imaging Report ---
EXAM: CHEST SINGLE (PORTABLE), INDICATION: Intubated COMPARISON: 10/26/2017 FINDINGS: LINES/TUBES: Endotracheal tube terminates approximately 5.7 cm above the mati. Stable position of left approach PICC , right IJ central line catheter and NG tube. Right-sided pacemaker is stable LUNGS: Bibasilar atelectasis, interlobular septi thickening PLEURA: Small bilateral pleural effusions right greater than left HEART AND MEDIASTINUM: Stable appearance with enlarged pulmonary arteries. BONES AND SOFT TISSUES: No acute findings. IMPRESSION: 1. Stable appearance of the chest. 2. Endotracheal tube, NG tube, left PICC line and right IJ central line catheter are in good position Signed by: Dr. Adria Jernigan M.D. on 10/27/2017 6:52 AM
[2017-10-27 07:32] LABS: ABG HCO3 32 mmol/L (23-28); ABG PCO2 53 mmHg (41-51); ABG PH 7.39 (7.31-7.41); ABG PO2 98 mmHg (80-105)
[2017-10-27] MEDS: FUROSEMIDE INJ 10 MG/ML 4 ML VIAL IV SCH (09:00)
[2017-10-27] MEDS: BALSAM PERU/CASTOR OIL 60 GM OINT...G. TP SCH ×2 (09:00→20:08)
[2017-10-27] MEDS: PANTOPRAZOLE 40 MG 10ML VIAL IV SCH (09:00)
[2017-10-27] MEDS: ENOXAPARIN SODIUM INJ 100 MG/ML SYR SC SCH ×2 (09:00→21:36)
[2017-10-27] MEDS ORDERED: DEXMEDETOMIDINE HCL 200 MCG in SODIUM CHLORIDE 0.9% 50ML 48 ML IV PRN (09:30)
[2017-10-27] MEDS: VANCOMYCIN 1GM/NS 250 ML 250 ML IV SCH ×2 (09:45→21:36)
[2017-10-27 10:37] LABS: HEMATOCRIT 26.4 % (38.2-49.6); HEMOGLOBIN 8.3 g/dL (14.0-18.0)
[2017-10-27 11:31] LABS: INR 1.19; PROTHROMBIN TIME 14.2 seconds (11.9-14.5)
[2017-10-27 11:32] LABS: PARTIAL THROMBOPLASTIN TIME 39.4 seconds (23.8-35.5)
[2017-10-27] MEDS ORDERED: CENTRAL TPN FORMULA 1 BAG IV SCH (14:43)
--- NOTE | 2017-10-27 14:46 | Diagnostic Imaging Report ---
PROCEDURE: CHEST XRAY POST PROCEDURE COMPARISON: Portable chest 10/27/2017 at 0534 hrs.. INDICATIONS: POST THORACENTESIS FINDINGS: Lines: No change in the proper position of the right chest cardiac device. LUNGS: No consolidations or edema. Bibasilar atelectasis. PLEURA: Decrease of the right pleural effusion. Small right pleural effusion remains. No pneumothorax. HEART \T\ MEDIASTINUM: The heart is within normal size-limits. BONES \T\ SOFT TISSUES: No acute findings. CONCLUSION: No pneumothorax status post thoracentesis.. Dictated by: Jaden Guerra M.D. on 10/27/2017 at 14:46 Electronically approved by: Jaden Guerra M.D. on 10/27/2017 at 14:46
--- NOTE | 2017-10-27 14:48 | Diagnostic Imaging Report ---
PROCEDURE: ULTRASOUND GUIDED THORACENTESIS COMPARISON: Portable chest 10/27/2017. INDICATIONS:Pleural Effusion FINDINGS: After informed consent was obtained, the patient was placed in the sitting position and preliminary ultrasound of the posterior chest identified a safe route into the right pleural effusion. The overlying skin was prepped and draped in usual sterile fashion. Lidocaine 1% was used for local anesthesia. Under ultrasound guidance, a centesis needle was advanced into the pleural fluid and 200 cc were aspirated. The patient tolerated the procedure well and there were no immediate post-procedural complications. A post-thoracentesis chest radiograph will be obtained. CONCLUSION: Uncomplicated ultrasound-guided right thoracentesis with removal of 200 cc. Dictated by: Jaden Guerra M.D. on 10/27/2017 at 14:48 Electronically approved by: Jaden Guerra M.D. on 10/27/2017 at 14:48
[2017-10-27 15:26] LABS: BODY FLUID TYPE PLEURAL
[2017-10-27 15:27] LABS: BODY FLUID APPEARANCE SL.CLOUDY; BODY FLUID COLOR STRAW; RBC,BODY FLUID 577 cells/uL; WBC,BODY FLUID 302 cells/uL
[2017-10-27 16:15] LABS: LYMPHOCYTES,BODY FLUID 54 %; MONO/MACROPHG,BODY FLUID 13 %; NEUTROPHILS,BODY FLUID 31 %; OTHER CELLS,BODY FLUID 2 %
[2017-10-28] VITALS (51 sets, daily range): BP systolic 104–148; BP diastolic 59–81
[2017-10-28] MEDS: AZTREONAM 1 GM/NS 50 ML 50 ML IV SCH ×3 (05:22→21:23)
--- NOTE | 2017-10-28 05:25 | Diagnostic Imaging Report ---
EXAM: CHEST SINGLE (PORTABLE), AP 1 view INDICATION: Extubation. COMPARISON: 10/27/2017 FINDINGS: LINES/TUBES: Endotracheal tube has been removed. Left PICC line, right IJ central line catheter and pacemaker are stable in good position. LUNGS: Low lung volumes. Interlobular septi thickening is present. PLEURA: Small bilateral pleural effusions. HEART AND MEDIASTINUM: Mild enlargement of the heart. BONES AND SOFT TISSUES: No acute findings. IMPRESSION: 1. Improving pulmonary edema, with bibasilar atelectasis and small pleural effusions 2. Endotracheal tube has been removed Signed by: Dr. Adria Jernigan M.D. on 10/28/2017 5:21 AM
[2017-10-28] MEDS: PANTOPRAZOLE 40 MG 10ML VIAL IV SCH (08:48)
[2017-10-28] MEDS: ENOXAPARIN SODIUM INJ 100 MG/ML SYR SC SCH ×2 (08:48→21:23)
[2017-10-28] MEDS: FUROSEMIDE INJ 10 MG/ML 4 ML VIAL IV SCH (08:48)
[2017-10-28] MEDS: BALSAM PERU/CASTOR OIL 60 GM OINT...G. TP SCH (09:00)
[2017-10-28 09:32] LABS: BASOPHILS % 0.2 % (0.0-1.0); EOSINOPHILS # (AUTO) 0.1 (0.0-0.4); EOSINOPHILS % 1.3 % (0.0-6.0); HEMATOCRIT 26.7 % (38.2-49.6); HEMOGLOBIN 8.1 g/dL (14.0-18.0); LYMPHOCYTES # (AUTO) 0.3 (1.0-3.2); MEAN CORPUSCULAR HEMOGLOBIN 26.2 pg (28-32); MEAN CORPUSCULAR HGB CONC 30.3 g/dL (31-35); MEAN CORPUSCULAR VOLUME 86.4 fL (81-99); MONOCYTES # (AUTO) 0.5 (0.2-0.8); MONOCYTES % 6.2 % (4.4-11.3); NEUTROPHILS # (AUTO) 7.4 (2.1-6.9); NEUTROPHILS % 87.5 % (38.7-80.0); PLATELET COUNT 300 x10e3/uL (140-360); RED BLOOD COUNT 3.09 x10e6/uL (4.3-5.7); RED CELL DISTRIBUTION WIDTH 14.6 % (11.7-14.4)
[2017-10-28] MEDS: VANCOMYCIN 1GM/NS 250 ML 250 ML IV SCH ×2 (09:45→21:23)
[2017-10-28 09:50] LABS: ANION GAP 11.9 mmol/L (8-16); BLOOD UREA NITROGEN 26 mg/dL (7-26); BUN/CREATININE RATIO 44 (6-25); CALCIUM 8.9 mg/dL (8.4-10.2); CARBON DIOXIDE 30 mmol/L (22-29); CHLORIDE 110 mmol/L (98-107); CREATININE, SERUM 0.59 mg/dL (0.72-1.25); EST GLOMERULAR FILTRATION RATE > 60 ML/MIN (60-); GLUCOSE 125 mg/dL (74-118); POTASSIUM 3.9 mmol/L (3.5-5.1); SODIUM 148 mmol/L (136-145)
[2017-10-28 10:12] LABS: EOSINOPHILS % (MANUAL) 3 % (0-7); LYMPHOCYTES % (MANUAL) 5 % (19-48); MONOCYTES % (MANUAL) 3 % (3.4-9.0); NEUTROPHILS % (MANUAL) 89 % (40-74)
[2017-10-28 10:15] LABS: ANISOCYTOSIS SLIGHT; HYPOCHROMASIA SLIGHT; RBC MORPHOLOGY COMMENT NORMAL
[2017-10-28 10:16] LABS: PLATELET ESTIMATE ADEQUATE; PLATELET MORPHOLOGY COMMENT NORMAL
[2017-10-28] MEDS: ACETYLCYSTEINE 20% INHAL SOLN 30 ML VIAL INH SCH ×2 (13:00→18:57)
[2017-10-28] MEDS: LEVALBUTEROL HCL SOLN NEBU 1.25 MG/3 ML NEB INH SCH ×2 (13:30→18:57)
[2017-10-28] MEDS ORDERED: ACETAMINOPHEN 1000 MG/100 ML IV STA (16:07)
[2017-10-28] MEDS ORDERED: ALBUTEROL/IPRATROPIUM 3 ML NEB NEB ONE (16:15)
[2017-10-28] MEDS ORDERED: METHYLPREDNISOLONE SOD SUCC 125 MG/2ML VIAL IV SCH ×2 (16:15→16:30)
[2017-10-28] MEDS ORDERED: SODIUM CHLORIDE 0.9% 1000ML 500 ML IV SCH (16:15)
[2017-10-28] MEDS ORDERED: ALBUTEROL SULF 0.083% NEB SOLN 3 ML NEB ONE (16:16)
[2017-10-28] MEDS ORDERED: IPRATROPIUM BROMIDE 0.02% 2.5 ML NEB ONE (16:16)
[2017-10-28 16:20] LABS: ABG PH 7.52 (7.31-7.41); ABG PO2 61 mmHg (80-105)
[2017-10-28 16:21] LABS: ABG HCO3 31 mmol/L (23-28); ABG PCO2 39 mmHg (41-51)
[2017-10-28] MEDS ORDERED: SODIUM CHLORIDE 0.9% 500ML 500 ML ONE (16:30)
--- NOTE | 2017-10-28 17:03 | Diagnostic Imaging Report ---
PROCEDURE: A single AP view of the chest. COMPARISON: Patients [facility], DX, CHEST SINGLE (PORTABLE), 10/28/2017, 4:58. INDICATIONS: S/P RAPID RESPONSE, SHORTNESS OF BREATH FINDINGS: See impression. IMPRESSION: 1. hypoinflated lungs. No interval change in bilateral pleural effusions. 2. Increased retrocardiac density, likely reflecting worsening atelectasis and/or superimposed aspiration. 3. Stable right upper chest multilead cardiac device and left-sided PICC line. 4. Stable cardiac silhouette. Central pulmonary venous congestion. 5. No acute bony abnormalities.. Marty Hernandez M.D. Dictated by: Marty Hernandez M.D. on 10/28/2017 at 17:04 Electronically approved by: Marty Hernandez M.D. on 10/28/2017 at 17:04
[2017-10-28 17:08] LABS: BASOPHILS % 0.3 % (0.0-1.0); EOSINOPHILS % 0.1 % (0.0-6.0); HEMATOCRIT 26.4 % (38.2-49.6); HEMOGLOBIN 8.3 g/dL (14.0-18.0); LYMPHOCYTES # (AUTO) 0.8 (1.0-3.2); LYMPHOCYTES % 8.2 % (18.0-39.1); MEAN CORPUSCULAR HEMOGLOBIN 26.3 pg (28-32); MEAN CORPUSCULAR HGB CONC 31.4 g/dL (31-35); MEAN CORPUSCULAR VOLUME 83.5 fL (81-99); MONOCYTES # (AUTO) 0.5 (0.2-0.8); MONOCYTES % 5.1 % (4.4-11.3); NEUTROPHILS # (AUTO) 8.3 (2.1-6.9); NEUTROPHILS % 85.2 % (38.7-80.0); PLATELET COUNT 312 x10e3/uL (140-360); RED BLOOD COUNT 3.16 x10e6/uL (4.3-5.7); RED CELL DISTRIBUTION WIDTH 14.5 % (11.7-14.4)
[2017-10-28] MEDS ORDERED: ALBUTEROL SULF 0.083% NEB SOLN 3 ML NEB NEB STA (17:12)
[2017-10-28 17:22] LABS: ALBUMIN 1.8 g/dL (3.5-5.0); BILIRUBIN,DIRECT 0.2 mg/dL (0.0-0.5)
[2017-10-28] MEDS ORDERED: SODIUM CHLORIDE 0.9% 1000ML 1,000 ML IV SCH (17:47)
--- NOTE | 2017-10-28 19:45 | Diagnostic Imaging Report ---
ADDENDUM #1 Addendum: Interval placement of a right PICC with tip overlying the cavoatrial junction, seen on last AP view. Evaluation is difficult in the first two views due to overlapping pacer leads. Signed by: Dr. Nelly Hutton M.D. on 10/28/2017 7:55 PM ORIGINAL REPORT EXAMINATION: CHEST XRAY LINE PLACEMENT INDICATION: \S\picc line in right arm COMPARISON: Chest radiograph 3 04/09 at 1840 3:00 PM FINDINGS: AP view TUBES and LINES: Dual-lead right-sided pacemaker device. Leads are overlying the right atrium and likely right ventricle, though evaluation is very limited.. Right IJ central venous catheter with tip overlying the mid SVC, unchanged. Left PICC with tip overlying the mid SVC, unchanged. LUNGS: Lungs are well inflated. Unchanged right lower lobe airspace opacity with volume loss. Subsegmental atelectasis in the left lower lobe remains unchanged. PLEURA: Trace bilateral pleural effusions, decreased on the right and unchanged on the left. HEART AND MEDIASTINUM: Mild to moderate enlargement of the cardiac silhouette. Tortuous thoracic aorta. BONES AND SOFT TISSUES: No acute osseous lesion. Soft tissues are unremarkable. UPPER ABDOMEN: No free air under the diaphragm. IMPRESSION: Unchanged right lower lobe consolidation with volume loss likely due to aspiration and atelectasis. Bilateral pleural effusions, decreased on the right and is stable on the left. Signed by: Dr. Nelly Hutton M.D. on 10/28/2017 7:42 PM
[2017-10-28] MEDS ORDERED: CENTRAL TPN FORMULA 1 BAG IV SCH (20:00)
[2017-10-29] VITALS (53 sets, daily range): BP systolic 107–158; BP diastolic 52–115
[2017-10-29] MEDS ORDERED: MICAFUNGIN SODIUM 50 MG/50 ML BAG IV ONE (00:15)
[2017-10-29] MEDS ORDERED: MICAFUNGIN SODIUM 100 ML IV ONE ×3 (00:30→10:00)
--- NOTE | 2017-10-29 01:09 | Consultation ---
DATE OF CONSULTATION: October 29, 2017 REASON FOR CONSULTATION: HISTORY OF PRESENT ILLNESS: This is an 82-year-old gentleman who was admitted by Dr. Dewey Ruiz with small-bowel obstruction. The patient underwent exploratory laparotomy, lysis of adhesions, right colectomy, and sigmoid resection. The patient had right and left colon mass. The patient was admitted to intensive care unit here at [facility]. The patient has history of smoking pipe, history of hypertension, hyperlipidemia, coronary artery disease, prostate cancer, bladder cancer, and sick sinus syndrome. He was diagnosed with pneumonia, was started on antibiotic. He was seen by Dr. Sexton on October 20, 2017. On October 24, 2017, patient had acute respiratory failure. He was intubated. On October 25, 2017, he had bronchoscopy and bronchoalveolar lavage. On October 27, 2017, he had ultrasound-guided thoracentesis; 200 mL was removed. LABORATORY DATA: Reviewed. His sputum is showing yeast. His blood culture is still pending. His white count is 9.78, hemoglobin 8.3, and hematocrit 26. Sodium 140, potassium 3.9, and creatinine 0.59. Patient is on vancomycin, Lovenox, and Azactam. PHYSICAL EXAMINATION VITAL SIGNS: His T-max has been 103.1. HEENT: Normocephalic. NECK: Supple. CHEST: Few crackles. COR: S1 and S2. No murmur. ABDOMEN: Soft. IMPRESSION: Fever in a patient who has been in the hospital on several antibiotics, now with pneumonia, status post surgery, status post right colectomy, status post sigmoid resection. Concern about fungal infection. Agree with blood cultures will follow. Job#: [id number]
[2017-10-29] MEDS: LEVALBUTEROL HCL SOLN NEBU 1.25 MG/3 ML NEB INH SCH ×4 (02:10→19:30)
[2017-10-29] MEDS: ACETYLCYSTEINE 20% INHAL SOLN 30 ML VIAL INH SCH ×4 (02:10→19:30)
[2017-10-29] MEDS: AZTREONAM 1 GM/NS 50 ML 50 ML IV SCH ×3 (06:21→22:00)
[2017-10-29] MEDS: BALSAM PERU/CASTOR OIL 60 GM OINT...G. TP SCH (09:00)
[2017-10-29] MEDS: PANTOPRAZOLE 40 MG 10ML VIAL IV SCH (10:00)
[2017-10-29] MEDS: ENOXAPARIN SODIUM INJ 100 MG/ML SYR SC SCH ×2 (10:00→21:00)
[2017-10-29] MEDS: ACETAMINOPHEN 325 MG TAB PO PRN ×2 (10:05→18:00)
[2017-10-29] MEDS: VANCOMYCIN 1GM/NS 250 ML 250 ML IV SCH ×2 (10:45→21:45)
[2017-10-29] MEDS ORDERED: HALOPERIDOL LACTATE 5 MG/ML VIAL IV ONE (13:00)
[2017-10-29] MEDS ORDERED: CENTRAL TPN FORMULA 1 BAG IV SCH (20:00)
[2017-10-30] VITALS (53 sets, daily range): BP systolic 64–129; BP diastolic 35–103
[2017-10-30] MEDS: LEVALBUTEROL HCL SOLN NEBU 1.25 MG/3 ML NEB INH SCH ×4 (02:10→19:25)
[2017-10-30] MEDS: ACETYLCYSTEINE 20% INHAL SOLN 30 ML VIAL INH SCH ×4 (02:10→19:25)
[2017-10-30] MEDS: AZTREONAM 1 GM/NS 50 ML 50 ML IV SCH (05:25)
[2017-10-30] MEDS: PANTOPRAZOLE 40 MG 10ML VIAL IV SCH (08:18)
[2017-10-30] MEDS: BALSAM PERU/CASTOR OIL 60 GM OINT...G. TP SCH (08:18)
[2017-10-30] MEDS: COLLAGENASE 5 GM TUBE TOP SCH (08:29)
[2017-10-30] MEDS ORDERED: MICAFUNGIN SODIUM 50 MG/50 ML BAG IV SCH (09:00)
[2017-10-30] MEDS: ENOXAPARIN SODIUM INJ 100 MG/ML SYR SC SCH ×2 (09:11→21:00)
--- NOTE | 2017-10-30 09:29 | Diagnostic Imaging Report ---
EXAMINATION: CHEST SINGLE (PORTABLE) INDICATION: \S\respiratory distress \S\[id number] \S\0850 COMPARISON: 10/28/2017 FINDINGS: AP view TUBES and LINES: Stable right chest wall dual-lead cardiac device. LUNGS and PLEURA: Pulmonary vascular congestion. Moderate-sized left pleural effusion. Elevated right hemidiaphragm. HEART AND MEDIASTINUM: Enlarged cardiac silhouette. BONES AND SOFT TISSUES: No acute osseous lesion. Soft tissues are unremarkable. UPPER ABDOMEN: No free air under the diaphragm. IMPRESSION: Enlarged cardiac silhouette, pulmonary vascular congestion, and moderate size left pleural effusion. Underlying infiltrate in the left lower lung field cannot be excluded. Signed by: Dr. Edgard Laureano MD on 10/30/2017 9:26 AM
[2017-10-30] MEDS ORDERED: MICAFUNGIN SODIUM 100 ML IV SCH (10:00)
[2017-10-30] MEDS ORDERED: BISACODYL 10 MG SUPP PR PRN (10:45)
--- NOTE | 2017-10-30 12:22 | Progress Note ---
DATE: October 29, 2017 ADDENDUM TO CONSULTATION DONE ON 10/29/2017 The patient was seen and examined and the chart reviewed. REVIEW OF SYSTEMS: Could not be obtained. MEDICATION LIST: Reviewed. Please refer to my note in the chart. PAST MEDICAL HISTORY: Hypertension, hyperlipidemia, coronary artery disease, bladder cancer, prostate cancer, diverticulosis, sick sinus syndrome. PAST SURGICAL HISTORY: As above. SOCIAL HISTORY: He used to smoke for 50 years, but he smoked cigars. No drug or alcohol abuse. ALLERGIES: REVIEWED. LABORATORY DATA: Reviewed. IMPRESSION 1. Sepsis. Concerned about fungal infection. Will add and blood cultures. If the blood cultures come back positive, will have to change the lines. 2. Other medical problems as above. Will follow with you. Job#: [id number]
[2017-10-30] MEDS ORDERED: FUROSEMIDE INJ 10 MG/ML 4 ML VIAL IV ONE (14:00)
[2017-10-30] MEDS ORDERED: AMIODARONE HCL 150MG 100 ML IV ONE (18:30)
[2017-10-30] MEDS ORDERED: DIGOXIN INJ 0.25 MG/ML 2 ML AMP IV ONE (18:30)
[2017-10-30] MEDS ORDERED: AMIODARONE HCL 900 MG in DEXTROSE 5% 500ML 500 ML IV SCH (18:30)
[2017-10-30 19:26] LABS: ALANINE AMINOTRANSFERASE 42 IU/L (0-55); ALBUMIN 1.8 g/dL (3.5-5.0); ALBUMIN/GLOBULIN RATIO 0.4 (0.8-2.0); ALKALINE PHOSPHATASE 63 IU/L (40-150); ANION GAP 13.3 mmol/L (8-16); BLOOD UREA NITROGEN 33 mg/dL (7-26); BUN/CREATININE RATIO 40 (6-25); CALCIUM 9.1 mg/dL (8.4-10.2); CARBON DIOXIDE 30 mmol/L (22-29); CHLORIDE 111 mmol/L (98-107); CREATININE, SERUM 0.82 mg/dL (0.72-1.25); EST GLOMERULAR FILTRATION RATE > 60 ML/MIN (60-); GLUCOSE 117 mg/dL (74-118); MAGNESIUM 2.1 MG/DL (1.3-2.1); POTASSIUM 3.3 mmol/L (3.5-5.1); SODIUM 151 mmol/L (136-145)
[2017-10-30 19:35] LABS: BASOPHILS % 0.3 % (0.0-1.0); EOSINOPHILS % 0.4 % (0.0-6.0); HEMATOCRIT 23.4 % (38.2-49.6); HEMOGLOBIN 7.2 g/dL (14.0-18.0); LYMPHOCYTES # (AUTO) 0.5 (1.0-3.2); LYMPHOCYTES % 4.6 % (18.0-39.1); MEAN CORPUSCULAR HEMOGLOBIN 26.4 pg (28-32); MEAN CORPUSCULAR HGB CONC 30.8 g/dL (31-35); MEAN CORPUSCULAR VOLUME 85.7 fL (81-99); MONOCYTES # (AUTO) 0.8 (0.2-0.8); MONOCYTES % 7.7 % (4.4-11.3); NEUTROPHILS # (AUTO) 9.5 (2.1-6.9); NEUTROPHILS % 86.5 % (38.7-80.0); PLATELET COUNT 313 x10e3/uL (140-360); RED BLOOD COUNT 2.73 x10e6/uL (4.3-5.7)
[2017-10-30 19:46] LABS: THYROID STIMULATING HORMONE 1.198 uIU/mL (0.350-4.940)
[2017-10-30] MEDS ORDERED: NOREPINEPHRINE BITARTRATE/ NS 250 ML IV PRN (20:00)
[2017-10-30] MEDS ORDERED: CENTRAL TPN FORMULA 1 BAG IV SCH (20:00)
[2017-10-30] MEDS ORDERED: POTASSIUM CHLORIDE 20MEQ/100ML 300 ML IV ONE (21:45)
[2017-10-30] MEDS ORDERED: POTASSIUM CHLORIDE 250 ML IV ONE (22:37)
[2017-10-30] MEDS: FUROSEMIDE INJ 10 MG/ML 4 ML VIAL IV SCH (23:27)
[2017-10-30] MEDS ORDERED: POTASSIUM CHLORIDE 20MEQ/100ML 250 ML IV ONE (23:45)
[2017-10-31] VITALS (74 sets, daily range): BP systolic 70–137; BP diastolic 47–99
[2017-10-31] MEDS ORDERED: POTASSIUM CHLORIDE 250 ML IV SCH (00:30)
[2017-10-31] MEDS: ACETYLCYSTEINE 20% INHAL SOLN 30 ML VIAL INH SCH ×4 (02:45→19:15)
[2017-10-31] MEDS: LEVALBUTEROL HCL SOLN NEBU 1.25 MG/3 ML NEB INH SCH ×4 (02:45→19:15)
[2017-10-31 05:50] LABS: HEMATOCRIT 22.3 % (38.2-49.6)
[2017-10-31 05:51] LABS: HEMOGLOBIN 6.8 g/dL (14.0-18.0)
[2017-10-31 06:09] LABS: ANION GAP 12.6 mmol/L (8-16); BLOOD UREA NITROGEN 37 mg/dL (7-26); BUN/CREATININE RATIO 44 (6-25); CALCIUM 8.8 mg/dL (8.4-10.2); CARBON DIOXIDE 30 mmol/L (22-29); CHLORIDE 110 mmol/L (98-107); CREATININE, SERUM 0.84 mg/dL (0.72-1.25); EST GLOMERULAR FILTRATION RATE > 60 ML/MIN (60-); GLUCOSE 145 mg/dL (74-118); POTASSIUM 3.6 mmol/L (3.5-5.1); SODIUM 149 mmol/L (136-145)
[2017-10-31] MEDS ORDERED: POTASSIUM CHLORIDE 20MEQ/100ML 100 ML IV ONE (08:00)
[2017-10-31] MEDS: FLUCONAZOLE 400MG/200ML BAG 200 ML IV SCH (09:00)
[2017-10-31] MEDS: COLLAGENASE 5 GM TUBE TOP SCH (09:00)
[2017-10-31] MEDS: PANTOPRAZOLE 40 MG 10ML VIAL IV SCH (09:00)
[2017-10-31] MEDS: BALSAM PERU/CASTOR OIL 60 GM OINT...G. TP SCH (09:00)
[2017-10-31] MEDS: ENOXAPARIN SODIUM INJ 100 MG/ML SYR SC SCH ×2 (09:00→22:41)
[2017-10-31] MEDS: CHOLESTYRAMINE 4 GM PACKET PO SCH ×2 (09:00→17:00)
[2017-10-31] MEDS ORDERED: SODIUM CHLORIDE 0.9% 250ML 250 ML IV ONE (09:00)
[2017-10-31] MEDS: ACETAMINOPHEN 325 MG TAB PO PRN ×3 (09:40→19:00)
[2017-10-31] MEDS ORDERED: SODIUM CHLORIDE 0.9% 250ML 250 ML ONE (12:58)
[2017-10-31] MEDS ORDERED: FUROSEMIDE INJ 10 MG/ML 4 ML VIAL IV ONE (14:30)
[2017-10-31] MEDS ORDERED: TRAMADOL/APAP 37.5MG-325MG TAB PO PRN (18:00)
[2017-10-31] MEDS: AMIODARONE HCL 900 MG in DEXTROSE 5% 500ML 500 ML IV ONE ×2 (20:27→21:05)
[2017-10-31] MEDS: CENTRAL TPN FORMULA 1 BAG IV SCH (20:28)
[2017-10-31] MEDS ORDERED: AMIODARONE 900MG 500 ML IV ONE (21:09)
[2017-10-31] MEDS ORDERED: HALOPERIDOL LACTATE 5 MG/ML VIAL IV ONE (22:30)
[2017-10-31] MEDS ORDERED: HALOPERIDOL LACTATE 5 MG/ML VIAL ONE (22:49)
[2017-11-01] VITALS (83 sets, daily range): BP systolic 67–163; BP diastolic 42–146
[2017-11-01] MEDS: LEVALBUTEROL HCL SOLN NEBU 1.25 MG/3 ML NEB INH SCH ×4 (00:30→19:15)
[2017-11-01] MEDS: ACETYLCYSTEINE 20% INHAL SOLN 30 ML VIAL INH SCH ×4 (00:30→19:15)
[2017-11-01] MEDS: HALOPERIDOL LACTATE 5 MG/ML VIAL IV PRN ×2 (01:00→22:28)
[2017-11-01 06:02] LABS: BASOPHILS % 0.2 % (0.0-1.0); EOSINOPHILS # (AUTO) 0.1 (0.0-0.4); HEMATOCRIT 23.8 % (38.2-49.6); LYMPHOCYTES # (AUTO) 0.6 (1.0-3.2); LYMPHOCYTES % 4.8 % (18.0-39.1); MEAN CORPUSCULAR HEMOGLOBIN 26.8 pg (28-32); MEAN CORPUSCULAR HGB CONC 31.9 g/dL (31-35); MEAN CORPUSCULAR VOLUME 83.8 fL (81-99); MONOCYTES # (AUTO) 0.8 (0.2-0.8); MONOCYTES % 5.8 % (4.4-11.3); NEUTROPHILS # (AUTO) 11.4 (2.1-6.9); NEUTROPHILS % 87.4 % (38.7-80.0); PLATELET COUNT 355 x10e3/uL (140-360); RED BLOOD COUNT 2.84 x10e6/uL (4.3-5.7); RED CELL DISTRIBUTION WIDTH 14.5 % (11.7-14.4)
[2017-11-01 06:17] LABS: HEMOGLOBIN 7.6 g/dL (14.0-18.0)
[2017-11-01 06:23] LABS: ALANINE AMINOTRANSFERASE 43 IU/L (0-55); ALBUMIN 1.8 g/dL (3.5-5.0); ALBUMIN/GLOBULIN RATIO 0.5 (0.8-2.0); ALKALINE PHOSPHATASE 66 IU/L (40-150); ANION GAP 11.1 mmol/L (8-16); BLOOD UREA NITROGEN 35 mg/dL (7-26); BUN/CREATININE RATIO 42 (6-25); CALCIUM 8.9 mg/dL (8.4-10.2); CARBON DIOXIDE 31 mmol/L (22-29); CHLORIDE 108 mmol/L (98-107); CREATININE, SERUM 0.83 mg/dL (0.72-1.25); EST GLOMERULAR FILTRATION RATE > 60 ML/MIN (60-); GLUCOSE 117 mg/dL (74-118); POTASSIUM 3.1 mmol/L (3.5-5.1); SODIUM 147 mmol/L (136-145)
[2017-11-01] MEDS ORDERED: POTASSIUM CHLORIDE 20MEQ/100ML 100 ML IV PRN (08:30)
[2017-11-01] MEDS: CHOLESTYRAMINE 4 GM PACKET PO SCH ×2 (09:00→17:00)
--- NOTE | 2017-11-01 09:00 | Consultation ---
DATE OF CONSULTATION: October 31, 2017 CARDIOLOGY CONSULTATION REASON FOR CONSULTATION: Evaluate cardiac status. HISTORY OF PRESENT ILLNESS: Mr. Garnica is an 82-year-old gentleman who is well known to us with past medical history of advanced rheumatoid arthritis, severe peripheral neuropathy, prostate cancer on chronic injection therapy, as well as history of sick sinus syndrome, COPD and smoker, who had a pacemaker implanted back in February 2015, specifically a dual-chamber device. The patient has been slowly deteriorating after his about a year ago and essentially presented to this institution on October 13, 2017, with small-bowel obstruction and terminal ileitis. The patient underwent exploratory laparotomy on October 19, 2017. The patient interestingly had right and left colonic masses as well as tons of adhesions and underwent right colectomy and sigmoid resection with reanastomosis. The patient has so far a [facility] course with the development of pneumonia, C. diff colitis, hypoxia with need for intubation with subsequent extubation several days ago. The patient also is noted to have pulmonary embolization on chest CT on October 23, 2017, and is maintained on anticoagulation therapy. He happened to have large left common femoral vein partial DVT on extremity venous duplex on October 23, 2017. The patient was noted to have also acute blood loss anemia with last hemoglobin down to 6.8 and is in the process of getting 2 units packed red blood cells transfusion. His nutrition has been slow, and he has been maintained on TPN therapy. The patient developed atrial fibrillation with rapid ventricular response yesterday and moved down to the ICU for further care and management. He was initiated on amiodarone drip and has cardioverted. Device interrogation was done today showing that he is 72% atrial pacing and 4% ventricular pacing, and they did note the mode switch due to his atrial fibrillation on October 30, 2017, at around 4:50 p.m. with duration of AFib for about 2 hours 30 minutes. Currently, the patient is in the ICU with slight nutrition. He is slightly tachypneic but says his breathing is okay. He is satting 96% on 2 L nasal cannula. Denies any chest pain or discomfort. PAST MEDICAL HISTORY 1. Sick sinus syndrome, status post permanent pacemaker implantation back in 2014. 2. Prostate cancer on chronic injection therapy. 3. COPD, smoker. 4. History of cholecystectomy. 5. History of bilateral knee replacement surgery. 6. History of left inguinal hernia surgery. 7. History of ex-lap as noted above. 8. History of rheumatoid arthritis. 9. History of decreased hearing. 10. History of peripheral neuropathy. FAMILY HISTORY: Father of cancer. Mother of cancer. One brother of . He is currently . His about a year ago. SOCIAL HISTORY: He is . He smokes 1/2 pack per day. Denies any alcohol or illicit drug use. ALLERGIES: INCLUDE PENICILLIN AND GABAPENTIN. CURRENT MEDICATIONS: Include: 1. Fluconazole. 2. Acetaminophen p.r.n. 3. Cholestyramine 4 mg b.i.d. 4. Collagenase daily. 5. Lovenox 100 mg subcutaneous b.i.d. 6. Protonix 40 mg IV daily. 7. Mucomyst q.6 h. 8. Xopenex q.6 h. 9. Lasix 40 mg IV daily. 10. Amiodarone 0.5 mg per minute IV continuous. 11. Zofran 4 mg daily. 12. TPN q.24 h. 13. Dulcolax 10 mg per rectum p.r.n. REVIEW OF SYSTEMS GENERAL: Positive for fatigue and malaise. Denies any subjective fevers today or chills. HEENT: No headache. Has chronically decreased hearing. No visual complaints. RESPIRATORY: Positive for shortness of breath at rest as well as some orthopnea. CARDIOVASCULAR: Denies any chest pain or discomfort. Denies any subjective palpitations despite the AFib. He does report orthopnea at 45 degrees. No PND. GI: Positive for loose stools, abdominal bloating and discomfort. : Denies any dysuria. Does have a Mena. No hematuria. MUSCULOSKELETAL: Positive for lower back pain and knee aches and pains. Positive for leg swelling in both ankles. HEMATOLOGY: Positive for anemia. ENDOCRINE: Denies any heat or old intolerance. NEUROLOGIC: Does report diffuse weakness. OTHER: The remainder of the review of systems is negative unless otherwise mentioned. PHYSICAL EXAMINATION VITALS: Height of 73 inches, weight 197 pounds, BMI 26. Last temperature was 98.7, pulse 66, respiratory rate 18, blood pressure 118/66, O2 sat 96% on 2 L nasal cannula. GENERAL: This is a very chronically ill-appearing gentleman who is debilitated and weak. He is currently with slightly increased work of breathing. HEENT: Normocephalic and atraumatic. Pupils are equal, round and reactive to light. The extraocular movements are intact. Oropharynx is clear. There is a nasal cannula. NECK: There is elevation of jugular venous pulsation. No carotid bruit. CARDIOVASCULAR: Regular rate and rhythm. Normal S1 and S2. There is a left shoulder permanent pacemaker scar noted. ABDOMEN: Soft. Slightly distended. Normoactive bowel sounds. There is an ex-lap scar with zhang that is clean, dry and intact. BACK: No costovertebral angle tenderness. EXTREMITIES: Cool with 2+ edema. NEUROLOGIC: Cranial nerves II through XII are grossly intact. Strength is weak in all 4 extremities. LABS: White count 10.9, hemoglobin 6.8, hematocrit 22.3, platelets 313. Sodium 149, potassium 3.6, chloride 110, bicarb 30, BUN 37, creatinine 0.84, glucose 145. Calcium 8.8. Last AST is 69, ALT 42, alk phos 63, total protein 6.0, albumin 1.8. TSH is 1.18. BNP was 654. Troponin was 0.092. EKG reveals atrial fibrillation, right bundle-branch block, left anterior fascicular block and nonspecific ST-T wave changes. Last chest x-ray on October 30 reveals enlarged cardiac silhouette, pulmonary vascular congestion, left pleural effusion. MICROBIOLOGY: Cath tip cultures and blood cultures positive from October 28, 2017, showing Tawana albicans. DIAGNOSES 1. Atrial fibrillation, paroxysmal, secondary to active medical issues. 2. Acute pulmonary embolism, postoperative, in the setting of hypercoagulable state due to his underlying malignancy status. 3. Small-bowel obstruction, status post colectomy. 4. Clostridium difficile colitis. 5. Fungemia. 6. Poor nutrition on total parenteral nutrition. 7. Sick sinus syndrome, status post dual-chamber pacemaker, appropriately functioning. 8. [id number] decompensated diastolic heart failure. 9. Volume overload with left pleural effusion. 10. Acute blood loss anemia. PLAN/RECOMMENDATIONS 1. From a cardiovascular standpoint, will maintain him on amiodarone drip at 0.5 mg per minute to minimize paroxysms of atrial fibrillation. 2. Agree with 2-unit packed red blood cell transfusion. 3. Echocardiogram ordered today, will follow up on this result. 4. Will give Lasix after packed red blood cells transfusion. 5. Will need aggressive diuresis as clinical status tolerates. 6. Currently is on full anticoagulation with subcutaneous Lovenox. 7. Will recheck bilateral lower extremity duplex to evaluate his clot burden in his legs and to determine the need for IVC filter should his hemoglobin continue to drop. 8. Will continue to follow this patient with you and adjust course as clinical status dictates. Job#: [id number] TERESSA LARKIN
--- NOTE | 2017-11-01 09:24 | Diagnostic Imaging Report ---
PROCEDURE: A single AP view of the chest. COMPARISON: [facility], , CHEST SINGLE (PORTABLE), 10/30/2017, 8:43. INDICATIONS: SHORTNESS OF BREATH, WHEEZING FINDINGS: Lines/tubes: Right chest wall dual-lead cardiac device present. Lungs: Mild central pulmonary vascular congestion. Pleura: Bilateral pleural effusions; left side greater than right. Heart and mediastinum: The heart is at the upper limits of normal in size. Bones: No acute bony abnormality. IMPRESSION: Central pulmonary vascular congestion with bilateral pleural effusions. Sina Moise D.O. Dictated by: Sina Moise D.O. on 11/01/2017 at 9:24 Electronically approved by: Sina Moise D.O. on 11/01/2017 at 9:24
[2017-11-01] MEDS: ENOXAPARIN SODIUM INJ 100 MG/ML SYR SC SCH (09:45)
[2017-11-01] MEDS: FLUCONAZOLE 400MG/200ML BAG 200 ML IV SCH (09:45)
[2017-11-01] MEDS: FUROSEMIDE INJ 10 MG/ML 4 ML VIAL IV SCH (09:45)
[2017-11-01] MEDS: PANTOPRAZOLE 40 MG 10ML VIAL IV SCH (09:45)
[2017-11-01] MEDS: COLLAGENASE 5 GM TUBE TOP SCH (09:46)
[2017-11-01] MEDS: BALSAM PERU/CASTOR OIL 60 GM OINT...G. TP SCH (09:46)
[2017-11-01 09:58] LABS: ABG HCO3 30 mmol/L (23-28); ABG PCO2 46 mmHg (41-51); ABG PH 7.43 (7.31-7.41); ABG PO2 72 mmHg (80-105)
[2017-11-01] MEDS ORDERED: POTASSIUM CHLORIDE 20MEQ/100ML 200 ML IV ONE (10:30)
[2017-11-01] MEDS: POTASSIUM CHLORIDE 20MEQ/100ML 100 ML IV SCH ×2 (11:53→15:53)
[2017-11-01] MEDS: VANCOMYCIN 250MG/5ML ORAL SOLN PO SCH ×3 (12:00→23:58)
[2017-11-01] MEDS ORDERED: FUROSEMIDE INJ 10 MG/ML 4 ML VIAL IV ONE (15:00)
--- NOTE | 2017-11-01 16:13 | Diagnostic Imaging Report ---
PROCEDURE:MODIFIED BA. SWALLOW COMPARISON:None. INDICATIONS:Aspiration, right lower lobe pneumonia. DISCUSSION: Fluoroscopic examination was performed in conjunction with speech pathology during swallowing of a variety of thin and thick liquid consistencies. FINDINGS: PREMATURE SPILLAGE: Over the base of the tongue: Present within liquids and mixed consistency To vallecula: Present with liquids and mixed consistency To pyriform sinus: Present with thick liquids and pure LARYNGEAL PENETRATION: Present with thin and nectar thick liquids ASPIRATION: Present with thin and nectar thick liquids. Cough present was present but delayed. RESIDUE: VALLECULA: Mild to moderate with pure PYRIFORM SINUS: Mild with pure PHARYNGEAL WALL: None BASE OF TONGUE: Trace with pudding CONCLUSION: Aspiration with thin and nectar thick liquids. Please see report from speech pathology for complete details. Dictated by: Stanley Soria M.D. on 11/01/2017 at 16:13 Electronically approved by: Stanley Soria M.D. on 11/01/2017 at 16:13
[2017-11-01] MEDS: CENTRAL TPN FORMULA 1 BAG IV SCH (20:49)
--- NOTE | 2017-11-01 21:52 | Consultation ---
DATE OF CONSULTATION: October 30, 2017 CARDIOLOGY CONSULTATION REFERRING PHYSICIAN: Dr. Dewey Ruiz REASON FOR CONSULTATION: Atrial fibrillation. HISTORY OF PRESENT ILLNESS: Mr. Garnica is a pleasant 82-year-old man with history of right and left colon masses, now status post right colectomy and sigmoid resection with lysis of adhesions for small-bowel obstruction most recently, strong history of smoking. His course has been complicated with development of aspiration pneumonia; acute hypoxic respiratory failure, now improving; left pleural effusion; pulmonary embolism and DVT. He has a history of pacemaker placement for sick sinus syndrome, also history of hypertension, dyslipidemia, CAD, bladder cancer, prostate cancer, and diverticulosis. Overnight, he has developed atrial fibrillation. He has been on anticoagulation with Lovenox, therapeutic dose, for his recent DVT. He remains anemic, but stable from an H and H standpoint. Breathing remains labored, however, not worse today. He has received some additional Lasix earlier this afternoon via IV route. His atrial fibrillation is having episodes of rapid ventricular response as high into the 170s. He is mildly hypotensive and the systolic pressure is 80s to 100s. He denies any chest pain or lightheadedness at this point in time. REVIEW OF SYSTEMS: Twelve-system review otherwise negative except for as noted above. ALLERGIES: TO PENICILLIN, TETANUS VACCINES INCLUDING TOXOID, AND GABAPENTIN PER CHART REVIEW. PAST MEDICAL HISTORY: As per HPI. SOCIAL HISTORY: Significant for strong history of smoking. FAMILY HISTORY: Noncontributory. PHYSICAL EXAMINATION: VITAL SIGNS: His temperature is 99.1, heart rate ranging from 96 to 175, respiratory rate 22, blood pressure most recent one was 108/69, O2 sat 94% on 5 L per minute nasal cannula. GENERAL: In no acute distress, sitting upright. NECK: No JVD noted, however, 60-degree head elevation currently. CHEST: He does have some wheezing on exam and he is tachypneic. CARDIOVASCULAR: Irregularly irregular rate and rhythm. Normal S1 and S2. Distant heart sounds. ABDOMEN: Mildly distended. Ex lap scar healing well. EXTREMITIES: With trace edema. Warm distal extremities. CARDIOVASCULAR MEDICATIONS: Include Lovenox 100 mg subcutaneously q.12h. STUDIES: White blood cells 9.7, hemoglobin 8.3, platelets 312,000, that is from October 28. No recent H and H available. His most recent troponin was 0.092, done today. BNP is 654. Most recent creatinine was 0.5, potassium 3.9, this was on October 28, 2017. EKG showed atrial fibrillation, right bundle-branch block. ASSESSMENT: 1. Atrial fibrillation with rapid ventricular response. 2. History of pacemaker for sinus syndrome. 3. Aspiration pneumonia. 4. Strong history of smoking. 5. Left pleural effusion. 6. Anemia. 7. Colon masses and small-bowel obstruction, now status post exploratory laparotomy. 8. Status post sepsis. 9. Acute hypoxic respiratory failure. 10. Pulmonary embolism/deep venous thrombosis. 11. Hypertension. RECOMMENDATIONS: 1. Agree with continuing on anticoagulation for now. Monitor H and H closely. 2. Initiate amiodarone with bolus given over 20 minutes given blood pressure. 3. Give digoxin 0.5 mg IV x1 now to assist with rate control. Will prefer to avoid long-term use of digoxin, however, will use it as a short-term management of his rapid ventricular response given issues with blood pressure. 4. Agree with diuretics. 5. Recheck electrolytes today. 6. Obtain echocardiogram. 7. Will interrogate pacemaker. Job#: [id number]
[2017-11-01] MEDS ORDERED: HALOPERIDOL LACTATE 5 MG/ML VIAL ONE (22:22)
[2017-11-02] VITALS (91 sets, daily range): BP systolic 74–170; BP diastolic 44–110
[2017-11-02] MEDS: ACETYLCYSTEINE 20% INHAL SOLN 30 ML VIAL INH SCH ×4 (00:15→19:30)
[2017-11-02] MEDS: LEVALBUTEROL HCL SOLN NEBU 1.25 MG/3 ML NEB INH SCH ×4 (00:15→19:30)
[2017-11-02] MEDS ORDERED: AMIODARONE 900MG 500 ML IV ONE (01:00)
[2017-11-02] MEDS ORDERED: AMIODARONE HCL 900 MG in DEXTROSE 5% 500ML 500 ML IV ONE (01:17)
[2017-11-02] MEDS: VANCOMYCIN 250MG/5ML ORAL SOLN PO SCH ×3 (05:45→18:15)
[2017-11-02 06:07] LABS: BASOPHILS % 0.1 % (0.0-1.0); EOSINOPHILS % 0.1 % (0.0-6.0); LYMPHOCYTES # (AUTO) 0.8 (1.0-3.2); MEAN CORPUSCULAR HEMOGLOBIN 27.2 pg (28-32); MEAN CORPUSCULAR HGB CONC 32.4 g/dL (31-35); MEAN CORPUSCULAR VOLUME 83.9 fL (81-99); MONOCYTES # (AUTO) 0.9 (0.2-0.8); MONOCYTES % 5.6 % (4.4-11.3); NEUTROPHILS # (AUTO) 14.3 (2.1-6.9); NEUTROPHILS % 88.4 % (38.7-80.0); PLATELET COUNT 421 x10e3/uL (140-360); RED BLOOD COUNT 2.24 x10e6/uL (4.3-5.7); RED CELL DISTRIBUTION WIDTH 14.9 % (11.7-14.4)
[2017-11-02 06:12] LABS: HEMATOCRIT 18.8 % (38.2-49.6); HEMOGLOBIN 6.1 g/dL (14.0-18.0)
[2017-11-02 06:27] LABS: ALANINE AMINOTRANSFERASE 43 IU/L (0-55); ALBUMIN 1.8 g/dL (3.5-5.0); ALBUMIN/GLOBULIN RATIO 0.5 (0.8-2.0); ALKALINE PHOSPHATASE 64 IU/L (40-150); ANION GAP 11.2 mmol/L (8-16); BLOOD UREA NITROGEN 40 mg/dL (7-26); BUN/CREATININE RATIO 42 (6-25); CALCIUM 8.2 mg/dL (8.4-10.2); CARBON DIOXIDE 33 mmol/L (22-29); CHLORIDE 108 mmol/L (98-107); CREATININE, SERUM 0.96 mg/dL (0.72-1.25); EST GLOMERULAR FILTRATION RATE > 60 ML/MIN (60-); GLUCOSE 138 mg/dL (74-118); POTASSIUM 3.2 mmol/L (3.5-5.1); SODIUM 149 mmol/L (136-145)
--- NOTE | 2017-11-02 06:28 | Diagnostic Imaging Report ---
CHEST SINGLE (PORTABLE), 11/02/2017 7:00 AM Technique: CHEST SINGLE (PORTABLE) Comparison: 10/30/2017 Clinical history: Shortness of breath Findings: See Impression Impression: 1. Lines/Tubes: Stable right chest wall pacer. 2. Stable enlarged cardiac silhouette. 3. Persistent bilateral effusions with associated atelectasis and/or edema. Signed by: Dr Maryann Ann MD on 11/02/2017 6:24 AM
[2017-11-02] MEDS ORDERED: SODIUM CHLORIDE 0.9% 250ML 250 ML IV ONE ×2 (06:45→19:30)
[2017-11-02] MEDS: CHOLESTYRAMINE 4 GM PACKET PO SCH ×2 (09:00→17:00)
[2017-11-02] MEDS: PANTOPRAZOLE 40 MG 10ML VIAL IV SCH (09:33)
[2017-11-02] MEDS: BALSAM PERU/CASTOR OIL 60 GM OINT...G. TP SCH (09:33)
[2017-11-02] MEDS: COLLAGENASE 5 GM TUBE TOP SCH (09:33)
[2017-11-02] MEDS: FUROSEMIDE INJ 10 MG/ML 4 ML VIAL IV SCH (09:33)
[2017-11-02] MEDS: FLUCONAZOLE 400MG/200ML BAG 200 ML IV SCH (09:33)
[2017-11-02] MEDS ORDERED: SODIUM CHLORIDE 0.9% 250ML 250 ML ONE (11:02)
[2017-11-02] MEDS ORDERED: FUROSEMIDE INJ 10 MG/ML 2 ML VIAL ONE (13:06)
[2017-11-02 15:33] LABS: ABG HCO3 32 mmol/L (23-28); ABG PCO2 47 mmHg (41-51); ABG PH 7.44 (7.31-7.41); ABG PO2 62 mmHg (80-105)
[2017-11-02 18:08] LABS: BASOPHILS % 0.1 % (0.0-1.0); EOSINOPHILS % 0.1 % (0.0-6.0); LYMPHOCYTES # (AUTO) 0.8 (1.0-3.2); LYMPHOCYTES % 4.5 % (18.0-39.1); MEAN CORPUSCULAR HEMOGLOBIN 28.2 pg (28-32); MEAN CORPUSCULAR HGB CONC 33.3 g/dL (31-35); MEAN CORPUSCULAR VOLUME 84.6 fL (81-99); MONOCYTES % 5.4 % (4.4-11.3); NEUTROPHILS # (AUTO) 15.7 (2.1-6.9); PLATELET COUNT 357 x10e3/uL (140-360); RED BLOOD COUNT 2.59 x10e6/uL (4.3-5.7); RED CELL DISTRIBUTION WIDTH 14.6 % (11.7-14.4)
[2017-11-02 18:10] LABS: HEMATOCRIT 21.9 % (38.2-49.6); HEMOGLOBIN 7.3 g/dL (14.0-18.0)
[2017-11-02 18:24] LABS: ANION GAP 11.1 mmol/L (8-16); BLOOD UREA NITROGEN 41 mg/dL (7-26); BUN/CREATININE RATIO 41 (6-25); CALCIUM 8.7 mg/dL (8.4-10.2); CARBON DIOXIDE 33 mmol/L (22-29); CHLORIDE 110 mmol/L (98-107); CREATININE, SERUM 1.01 mg/dL (0.72-1.25); EST GLOMERULAR FILTRATION RATE > 60 ML/MIN (60-); GLUCOSE 143 mg/dL (74-118); POTASSIUM 3.1 mmol/L (3.5-5.1); SODIUM 151 mmol/L (136-145)
[2017-11-02] MEDS ORDERED: VANCOMYCIN 1GM/NS 250 ML 250 ML IV SCH (19:00)
[2017-11-02] MEDS ORDERED: POTASSIUM CHLORIDE 20MEQ/100ML 100 ML IV ONE (19:30)
[2017-11-02] MEDS: CENTRAL TPN FORMULA 1 BAG IV SCH (20:57)
[2017-11-02] MEDS: FUROSEMIDE INJ 10 MG/ML 2 ML VIAL IV PRN (23:07)
[2017-11-03] VITALS (54 sets, daily range): BP systolic 74–156; BP diastolic 53–140
[2017-11-03] MEDS: LEVALBUTEROL HCL SOLN NEBU 1.25 MG/3 ML NEB INH SCH ×4 (00:15→19:23)
[2017-11-03] MEDS: ACETYLCYSTEINE 20% INHAL SOLN 30 ML VIAL INH SCH ×4 (00:15→19:28)
[2017-11-03] MEDS: VANCOMYCIN 250MG/5ML ORAL SOLN PO SCH ×4 (00:16→18:00)
[2017-11-03] MEDS ORDERED: AMIODARONE 900MG 500 ML IV ONE (00:57)
[2017-11-03] MEDS: FUROSEMIDE INJ 10 MG/ML 2 ML VIAL IV PRN (01:15)
[2017-11-03] MEDS: VANCOMYCIN 1GM/NS 250 ML 250 ML IV SCH (01:42)
[2017-11-03] MEDS ORDERED: AMIODARONE HCL 900 MG in DEXTROSE 5% 500ML 500 ML IV PRN (05:45)
[2017-11-03 05:55] LABS: BASOPHILS % 0.2 % (0.0-1.0); EOSINOPHILS # (AUTO) 0.1 (0.0-0.4); EOSINOPHILS % 0.4 % (0.0-6.0); HEMATOCRIT 26.2 % (38.2-49.6); HEMOGLOBIN 8.6 g/dL (14.0-18.0); LYMPHOCYTES # (AUTO) 0.6 (1.0-3.2); LYMPHOCYTES % 3.6 % (18.0-39.1); MEAN CORPUSCULAR HEMOGLOBIN 28.3 pg (28-32); MEAN CORPUSCULAR HGB CONC 32.8 g/dL (31-35); MEAN CORPUSCULAR VOLUME 86.2 fL (81-99); MONOCYTES # (AUTO) 0.8 (0.2-0.8); MONOCYTES % 4.3 % (4.4-11.3); NEUTROPHILS # (AUTO) 16.3 (2.1-6.9); NEUTROPHILS % 90.6 % (38.7-80.0); PLATELET COUNT 359 x10e3/uL (140-360); RED BLOOD COUNT 3.04 x10e6/uL (4.3-5.7); RED CELL DISTRIBUTION WIDTH 14.5 % (11.7-14.4)
[2017-11-03 06:19] LABS: ANION GAP 12.1 mmol/L (8-16); BLOOD UREA NITROGEN 43 mg/dL (7-26); BUN/CREATININE RATIO 43 (6-25); CALCIUM 8.7 mg/dL (8.4-10.2); CARBON DIOXIDE 34 mmol/L (22-29); CHLORIDE 109 mmol/L (98-107); CREATININE, SERUM 1.01 mg/dL (0.72-1.25); EST GLOMERULAR FILTRATION RATE > 60 ML/MIN (60-); GLUCOSE 141 mg/dL (74-118); POTASSIUM 3.1 mmol/L (3.5-5.1); SODIUM 152 mmol/L (136-145)
[2017-11-03] MEDS: FUROSEMIDE INJ 10 MG/ML 4 ML VIAL IV SCH (09:00)
[2017-11-03] MEDS: BALSAM PERU/CASTOR OIL 60 GM OINT...G. TP SCH (09:00)
[2017-11-03] MEDS: CHOLESTYRAMINE 4 GM PACKET PO SCH ×2 (09:00→17:00)
[2017-11-03] MEDS ORDERED: DEXTROSE 5% 500ML 500 ML IV ONE (09:00)
[2017-11-03] MEDS: FLUCONAZOLE 400MG/200ML BAG 200 ML IV SCH (09:00)
[2017-11-03] MEDS: PANTOPRAZOLE 40 MG 10ML VIAL IV SCH (09:00)
[2017-11-03] MEDS: COLLAGENASE 5 GM TUBE TOP SCH (10:37)
[2017-11-03] MEDS: POTASSIUM CHLORIDE 20 MEQ TAB CR PO SCH ×2 (14:21→18:00)
--- NOTE | 2017-11-03 19:24 | Progress Note ---
DATE: November 03, 2017 INFECTIOUS DISEASE PROGRESS NOTE SUBJECTIVE: Mr. Garnica is doing better today. He is more alert, oriented. He is feeling better. Diarrhea has improved. PHYSICAL EXAMINATION VITAL SIGNS: His vitals seem to be stable. HEENT: He does not appear icteric. NECK: Supple. CHEST: Clear. HEART: S1 and S2. No S3 or S4, no murmur. ABDOMEN: Soft. Bowel sounds present. No tenderness. EXTREMITIES: No edema. IMPRESSION 1. Sepsis secondary to fungemia secondary to line infection. Will put him on Diflucan 200 mg IV piggyback q.24 h. Can switch to oral once clinically better. He remains on TPN. Would recheck the blood cultures. I think he can leave the ICU and continue with PT/OT. 2. Pneumonia, resolved. 3. Clostridium difficile. Continue with oral vancomycin for 2 weeks. 4. Status post right colectomy, status post sigmoid resection with lysis of adhesions, status post small-bowel obstruction. 5. History of smoking. 6. Recently he had history of pulmonary embolism and deep vein thrombosis, left pleural effusion. 7. Atrial fibrillation. Continue with PT/OT. Continue with supportive care. Will follow with you. Job#: [id number] RENATA
[2017-11-03] MEDS: CENTRAL TPN FORMULA 1 BAG IV SCH (20:16)
[2017-11-03] MEDS ORDERED: HYDROCORTISONE SOD SUCCINATE 100 MG VIAL IV SCH (21:00)
[2017-11-04] VITALS (42 sets, daily range): BP systolic 104–140; BP diastolic 60–115
[2017-11-04] MEDS: VANCOMYCIN 250MG/5ML ORAL SOLN PO SCH ×5 (00:35→23:58)
[2017-11-04] MEDS: VANCOMYCIN 1GM/NS 250 ML 250 ML IV SCH (00:36)
[2017-11-04] MEDS: LEVALBUTEROL HCL SOLN NEBU 1.25 MG/3 ML NEB INH SCH ×4 (03:10→18:54)
[2017-11-04] MEDS: ACETYLCYSTEINE 20% INHAL SOLN 30 ML VIAL INH SCH ×2 (07:22→21:00)
[2017-11-04] MEDS: FUROSEMIDE INJ 10 MG/ML 4 ML VIAL IV SCH (09:06)
[2017-11-04] MEDS: FLUCONAZOLE 400MG/200ML BAG 200 ML IV SCH (09:06)
[2017-11-04] MEDS: AMIODARONE HCL 200 MG TAB PO SCH (09:06)
[2017-11-04] MEDS: PANTOPRAZOLE 40 MG 10ML VIAL IV SCH (09:06)
[2017-11-04] MEDS: CHOLESTYRAMINE 4 GM PACKET PO SCH ×2 (09:07→17:00)
[2017-11-04] MEDS: BALSAM PERU/CASTOR OIL 60 GM OINT...G. TP SCH (09:07)
[2017-11-04] MEDS: COLLAGENASE 5 GM TUBE TOP SCH (09:07)
[2017-11-04] MEDS ORDERED: SODIUM CHLORIDE 0.9% 250ML 250 ML ONE (09:22)
[2017-11-04 09:51] LABS: BASOPHILS % 0.1 % (0.0-1.0); EOSINOPHILS # (AUTO) 0.3 (0.0-0.4); EOSINOPHILS % 1.6 % (0.0-6.0); HEMOGLOBIN 8.9 g/dL (14.0-18.0); LYMPHOCYTES # (AUTO) 0.7 (1.0-3.2); LYMPHOCYTES % 4.3 % (18.0-39.1); MEAN CORPUSCULAR HEMOGLOBIN 28.1 pg (28-32); MEAN CORPUSCULAR HGB CONC 31.8 g/dL (31-35); MEAN CORPUSCULAR VOLUME 88.3 fL (81-99); MONOCYTES # (AUTO) 0.7 (0.2-0.8); MONOCYTES % 4.2 % (4.4-11.3); NEUTROPHILS # (AUTO) 14.3 (2.1-6.9); NEUTROPHILS % 87.9 % (38.7-80.0); PLATELET COUNT 348 x10e3/uL (140-360); RED BLOOD COUNT 3.17 x10e6/uL (4.3-5.7); RED CELL DISTRIBUTION WIDTH 15.5 % (11.7-14.4)
[2017-11-04 10:08] LABS: ANION GAP 10.5 mmol/L (8-16); BLOOD UREA NITROGEN 37 mg/dL (7-26); BUN/CREATININE RATIO 39 (6-25); CALCIUM 8.4 mg/dL (8.4-10.2); CARBON DIOXIDE 32 mmol/L (22-29); CHLORIDE 107 mmol/L (98-107); CREATININE, SERUM 0.96 mg/dL (0.72-1.25); EST GLOMERULAR FILTRATION RATE > 60 ML/MIN (60-); GLUCOSE 126 mg/dL (74-118); POTASSIUM 3.5 mmol/L (3.5-5.1); SODIUM 146 mmol/L (136-145)
[2017-11-04] MEDS ORDERED: DEXTROSE 5% 500ML 500 ML IV ONE (10:45)
[2017-11-04] MEDS: ACETAMINOPHEN 325 MG TAB PO PRN (13:28)
[2017-11-04] MEDS: POTASSIUM CHLORIDE 20 MEQ TAB CR PO SCH ×2 (14:00→18:40)
--- NOTE | 2017-11-04 16:51 | Diagnostic Imaging Report ---
PROCEDURE:X-RAY ABDOMEN - KUB COMPARISON:10/23/2017 acute abdominal series. INDICATIONS:OBSTRUCTION TERMINAL ILEITIS Small and large bowel dilatation again noted. Surgical zhang overlie the lower abdomen. The contrast present within the rectum. There are no calcifications projected over the renal shadows, expected course of the ureters or bladder. There are no acute osseous abnormalities. The lung bases are clear. CONCLUSION: Little interval change in the degree of small and large bowel dilatation. Sina Moise D.O. Dictated by: Sina Moise D.O. on 11/04/2017 at 16:50 Electronically approved by: Sina Moise D.O. on 11/04/2017 at 16:50
[2017-11-04] MEDS: ENOXAPARIN 30 MG/0.3 ML SYR SC SCH (17:00)
[2017-11-04] MEDS: METRONIDAZOLE 500MG/NS 100ML 100 ML IV SCH ×2 (18:40→23:58)
[2017-11-04] MEDS: CENTRAL TPN FORMULA 1 BAG IV SCH (20:12)
--- NOTE | 2017-11-04 23:23 | Progress Note ---
DATE: November 04, 2017 SUBJECTIVE: Mr. Garnica continues to improve. He is more alert. I met with his [id number] today. He has no complaint. PHYSICAL EXAMINATION GENERAL: He is currently alert. Does not seem in acute distress. He is still weak, but he was able to leave the bed. HEENT: Normocephalic. NECK: Supple. No JVD. No carotid bruit. No thyromegaly. CHEST: Clear bilaterally. HEART: S1, S2. No S3 or S4, no murmur. ABDOMEN: Soft. Bowel sounds present. Has discomfort today and more tender and more distended than yesterday. IMPRESSION 1. Clostridium difficile. While he has been on vancomycin, will add intravenous Flagyl today. Obtain KUB, will check in the morning. 2. Fungemia, better. 3. Bacteremia, probably due to Staph contamination. Will recheck blood cultures. 4. Anemia, stable. 5. Debilitated. 6. His labs today, white count is still 16.29, hemoglobin 8.9 after transfusion. His sodium 146, potassium 3.5, creatinine 0.96. Will reassess in the morning. Job#: [id number]
[2017-11-05] VITALS (9 sets, daily range): BP systolic 101–123; BP diastolic 52–72
[2017-11-05] MEDS: ONDANSETRON HCL INJ 2 MG/ML VIAL IV PRN (00:34)
[2017-11-05] MEDS: LEVALBUTEROL HCL SOLN NEBU 1.25 MG/3 ML NEB INH SCH ×4 (01:10→19:45)
[2017-11-05] MEDS: VANCOMYCIN 1GM/NS 250 ML 250 ML IV SCH (01:17)
[2017-11-05] MEDS: METRONIDAZOLE 500MG/NS 100ML 100 ML IV SCH ×3 (05:14→17:00)
[2017-11-05] MEDS: VANCOMYCIN 250MG/5ML ORAL SOLN PO SCH ×3 (05:14→17:11)
--- NOTE | 2017-11-05 06:29 | Diagnostic Imaging Report ---
CHEST SINGLE (PORTABLE), 11/05/2017 7:00 AM Technique: CHEST SINGLE (PORTABLE) Comparison: 11/02/2017 Clinical history: 'S of breath Findings: Limited portable technique with overlying artifact. Impression: 1. Lines/Tubes: Stable right chest wall pacer. 2. Stable enlarged cardiac silhouette. 3. Persistent bilateral effusions with associated atelectasis and/or edema. Signed by: Dr Maryann Ann MD on 11/05/2017 6:26 AM
[2017-11-05 06:40] LABS: BASOPHILS % 0.1 % (0.0-1.0); EOSINOPHILS # (AUTO) 0.2 (0.0-0.4); EOSINOPHILS % 1.9 % (0.0-6.0); HEMATOCRIT 26.2 % (38.2-49.6); HEMOGLOBIN 8.2 g/dL (14.0-18.0); LYMPHOCYTES # (AUTO) 0.6 (1.0-3.2); LYMPHOCYTES % 4.8 % (18.0-39.1); MEAN CORPUSCULAR HEMOGLOBIN 28.2 pg (28-32); MEAN CORPUSCULAR HGB CONC 31.3 g/dL (31-35); MONOCYTES # (AUTO) 0.7 (0.2-0.8); MONOCYTES % 5.2 % (4.4-11.3); NEUTROPHILS # (AUTO) 11.2 (2.1-6.9); NEUTROPHILS % 86.5 % (38.7-80.0); PLATELET COUNT 336 x10e3/uL (140-360); RED BLOOD COUNT 2.91 x10e6/uL (4.3-5.7); RED CELL DISTRIBUTION WIDTH 15.9 % (11.7-14.4)
[2017-11-05 07:07] LABS: ALANINE AMINOTRANSFERASE 62 IU/L (0-55); ALBUMIN 1.7 g/dL (3.5-5.0); ALBUMIN/GLOBULIN RATIO 0.4 (0.8-2.0); ALKALINE PHOSPHATASE 68 IU/L (40-150); ANION GAP 8.5 mmol/L (8-16); BLOOD UREA NITROGEN 38 mg/dL (7-26); BUN/CREATININE RATIO 36 (6-25); CALCIUM 8.5 mg/dL (8.4-10.2); CARBON DIOXIDE 32 mmol/L (22-29); CHLORIDE 106 mmol/L (98-107); CREATININE, SERUM 1.06 mg/dL (0.72-1.25); EST GLOMERULAR FILTRATION RATE > 60 ML/MIN (60-); GLUCOSE 121 mg/dL (74-118); POTASSIUM 4.5 mmol/L (3.5-5.1); SODIUM 142 mmol/L (136-145)
[2017-11-05] MEDS: ACETYLCYSTEINE 20% INHAL SOLN 30 ML VIAL INH SCH ×2 (07:18→21:00)
[2017-11-05] MEDS: CHOLESTYRAMINE 4 GM PACKET PO SCH ×3 (09:00→16:36)
[2017-11-05] MEDS: FLUCONAZOLE 400MG/200ML BAG 200 ML IV SCH (09:45)
[2017-11-05] MEDS: PANTOPRAZOLE 40 MG 10ML VIAL IV SCH (09:45)
[2017-11-05] MEDS: FUROSEMIDE INJ 10 MG/ML 4 ML VIAL IV SCH (09:45)
[2017-11-05] MEDS: BALSAM PERU/CASTOR OIL 60 GM OINT...G. TP SCH (09:45)
[2017-11-05] MEDS: COLLAGENASE 5 GM TUBE TOP SCH (09:45)
[2017-11-05] MEDS: AMIODARONE HCL 200 MG TAB PO SCH ×2 (09:46→11:16)
--- NOTE | 2017-11-05 14:29 | Progress Note ---
DATE: November 05, 2017 SUBJECTIVE: Mr. Garnica is out of ICU. He is doing better. There are no new complaints. REVIEW OF SYSTEMS: He is in physical therapy. PHYSICAL EXAMINATION GENERAL: He is currently alert. VITALS: Stable. Afebrile. Temperature 96.3. No fever for a few days now. HEENT: Normocephalic. NECK: Supple. CHEST: Clear bilaterally. COR: S1, S2. No murmur. ABDOMEN: Soft. Bowel sounds present. No tenderness. EXTREMITIES: No edema. SKIN: No rash. He is currently on fluconazole, metronidazole, vancomycin IV, vancomycin p.o. He is on Tylenol. IMPRESSION 1. Sepsis present on admission. Sepsis secondary to line infection resolved. 2. Fungemia. Finish 14 days of fluconazole. 3. Bacteremia, coagulase-negative Staphylococcus aureus. Check CBC. Recheck blood cultures. On vancomycin IV. 4. Clostridium difficile, slowly better. Continue with the current choice of antibiotic. 5. Debility. Will need PT and OT. 6. Anemia of chronic disease with acute component. 7. Will follow with you. Job#: [id number]
[2017-11-05] MEDS ORDERED: FUROSEMIDE INJ 10 MG/ML 4 ML VIAL IV ONE (15:00)
[2017-11-05] MEDS: ENOXAPARIN 30 MG/0.3 ML SYR SC SCH (16:36)
[2017-11-05] MEDS: CENTRAL TPN FORMULA 1 BAG IV SCH (20:33)
[2017-11-06] VITALS (9 sets, daily range): BP systolic 110–127; BP diastolic 58–82
[2017-11-06] MEDS: METRONIDAZOLE 500MG/NS 100ML 100 ML IV SCH ×4 (01:14→18:00)
[2017-11-06] MEDS: VANCOMYCIN 250MG/5ML ORAL SOLN PO SCH ×4 (01:14→18:00)
[2017-11-06] MEDS: LEVALBUTEROL HCL SOLN NEBU 1.25 MG/3 ML NEB INH SCH ×4 (01:25→19:59)
[2017-11-06] MEDS ORDERED: SODIUM CHLORIDE 0.9% 250ML 250 ML ONE (02:40)
[2017-11-06] MEDS: VANCOMYCIN 1GM/NS 250 ML 250 ML IV SCH (02:40)
[2017-11-06] MEDS: ACETYLCYSTEINE 20% INHAL SOLN 30 ML VIAL INH SCH ×2 (07:32→20:53)
[2017-11-06] MEDS: FLUCONAZOLE 400MG/200ML BAG 200 ML IV SCH (09:16)
[2017-11-06] MEDS: FUROSEMIDE INJ 10 MG/ML 4 ML VIAL IV SCH (09:16)
[2017-11-06] MEDS: PANTOPRAZOLE 40 MG 10ML VIAL IV SCH (09:16)
[2017-11-06] MEDS: BALSAM PERU/CASTOR OIL 60 GM OINT...G. TP SCH (09:17)
[2017-11-06] MEDS: COLLAGENASE 5 GM TUBE TOP SCH (09:17)
[2017-11-06] MEDS: CHOLESTYRAMINE 4 GM PACKET PO SCH ×2 (09:17→17:05)
[2017-11-06] MEDS: AMIODARONE HCL 200 MG TAB PO SCH (09:17)
[2017-11-06 09:48] LABS: BASOPHILS % 0.2 % (0.0-1.0); EOSINOPHILS # (AUTO) 0.1 (0.0-0.4); EOSINOPHILS % 1.2 % (0.0-6.0); LYMPHOCYTES # (AUTO) 0.5 (1.0-3.2); LYMPHOCYTES % 4.7 % (18.0-39.1); MEAN CORPUSCULAR HEMOGLOBIN 28.2 pg (28-32); MEAN CORPUSCULAR HGB CONC 30.8 g/dL (31-35); MEAN CORPUSCULAR VOLUME 91.5 fL (81-99); MONOCYTES # (AUTO) 0.6 (0.2-0.8); MONOCYTES % 5.3 % (4.4-11.3); NEUTROPHILS # (AUTO) 9.6 (2.1-6.9); NEUTROPHILS % 87.5 % (38.7-80.0); PLATELET COUNT 284 x10e3/uL (140-360); RED BLOOD COUNT 2.84 x10e6/uL (4.3-5.7); RED CELL DISTRIBUTION WIDTH 15.9 % (11.7-14.4)
[2017-11-06 10:05] LABS: ALBUMIN 1.6 g/dL (3.5-5.0); ALBUMIN/GLOBULIN RATIO 0.4 (0.8-2.0); ANION GAP 7.9 mmol/L (8-16); CALCIUM 8.8 mg/dL (8.4-10.2); CREATININE, SERUM 1.16 mg/dL (0.72-1.25); POTASSIUM 3.9 mmol/L (3.5-5.1)
[2017-11-06 11:20] LABS: LYMPHOCYTES % (MANUAL) 5 % (19-48); MONOCYTES % (MANUAL) 2 % (3.4-9.0); NEUTROPHILS % (MANUAL) 93 % (40-74); PLATELET ESTIMATE ADEQUATE; PLATELET MORPHOLOGY COMMENT NORMAL; RBC MORPHOLOGY COMMENT NORMAL
--- NOTE | 2017-11-06 15:45 | Progress Note ---
DATE: November 06, 2017 INFECTIOUS DISEASE PROGRESS NOTE SUBJECTIVE: Mr. Garnica seems to be doing better. His diarrhea seems to be getting better. No new problems. PHYSICAL EXAMINATION GENERAL: He is currently alert, oriented, does not seem to be in acute distress. VITAL SIGNS: Stable. Currently afebrile. HEENT: He does not appear icteric. Normocephalic. NECK: Supple. No JVD, no lymphadenopathy, no thyromegaly. CHEST: Clear bilaterally. HEART: S1 and S2. No S3 or S4, no murmur. ABDOMEN: Soft. Bowel sounds present. No tenderness. EXTREMITIES: No edema. IMPRESSION 1. Clostridium difficile colitis, sepsis, getting better. Plan is to continue with oral vancomycin for 3 weeks. 2. Bacteremia, coagulase-negative staph. Probably contamination, not sure yet. Will recheck blood culture, still pending. 3. Fungemia and sepsis on admission also seems to be getting better. Plan is for 14 days of fluconazole. 4. Status post surgery: Status post bronchoscopy for right lower lobe pneumonia, which is resolved. Status post exploratory laparotomy, lysis of adhesion, right colectomy, sigmoid resection for left mass. The pathology showed ulcer and lipoma. Job#: [id number] EV
[2017-11-06] MEDS: ENOXAPARIN 30 MG/0.3 ML SYR SC SCH (17:05)
--- NOTE | 2017-11-06 19:19 | Diagnostic Imaging Report ---
CHEST SINGLE (PORTABLE), 11/06/2017 6:13 PM Technique: CHEST SINGLE (PORTABLE) Comparison: Previous day Clinical history: CHF Findings: Limited portable technique with overlying artifact. Impression: 1. Lines/Tubes: Stable right chest wall pacer. 2. Stable enlarged cardiac silhouette. 3. Persistent bilateral effusions with associated atelectasis and/or edema. Signed by: Dr Maryann Ann MD on 11/06/2017 7:15 PM
[2017-11-06] MEDS: CENTRAL TPN FORMULA 1 BAG IV SCH (19:42)
[2017-11-07] VITALS (8 sets, daily range): BP systolic 115–140; BP diastolic 65–76
[2017-11-07] MEDS: LEVALBUTEROL HCL SOLN NEBU 1.25 MG/3 ML NEB INH SCH ×4 (00:28→19:25)
[2017-11-07] MEDS: METRONIDAZOLE 500MG/NS 100ML 100 ML IV SCH ×4 (00:55→18:29)
[2017-11-07] MEDS: VANCOMYCIN 250MG/5ML ORAL SOLN PO SCH ×4 (00:56→18:29)
[2017-11-07] MEDS: VANCOMYCIN 1GM/NS 250 ML 250 ML IV SCH (01:12)
[2017-11-07 06:24] LABS: BASOPHILS % 0.1 % (0.0-1.0); EOSINOPHILS # (AUTO) 0.2 (0.0-0.4); EOSINOPHILS % 1.4 % (0.0-6.0); HEMATOCRIT 24.5 % (38.2-49.6); HEMOGLOBIN 7.7 g/dL (14.0-18.0); LYMPHOCYTES # (AUTO) 0.6 (1.0-3.2); LYMPHOCYTES % 5.2 % (18.0-39.1); MEAN CORPUSCULAR HEMOGLOBIN 27.9 pg (28-32); MEAN CORPUSCULAR HGB CONC 31.4 g/dL (31-35); MEAN CORPUSCULAR VOLUME 88.8 fL (81-99); MONOCYTES # (AUTO) 0.6 (0.2-0.8); MONOCYTES % 5.3 % (4.4-11.3); NEUTROPHILS # (AUTO) 10.3 (2.1-6.9); NEUTROPHILS % 86.9 % (38.7-80.0); PLATELET COUNT 257 x10e3/uL (140-360); RED BLOOD COUNT 2.76 x10e6/uL (4.3-5.7); RED CELL DISTRIBUTION WIDTH 15.5 % (11.7-14.4)
[2017-11-07 06:52] LABS: ALANINE AMINOTRANSFERASE 35 IU/L (0-55); ALBUMIN 1.5 g/dL (3.5-5.0); ALBUMIN/GLOBULIN RATIO 0.4 (0.8-2.0); ALKALINE PHOSPHATASE 66 IU/L (40-150); ANION GAP 8.6 mmol/L (8-16); BLOOD UREA NITROGEN 28 mg/dL (7-26); BUN/CREATININE RATIO 30 (6-25); CALCIUM 8.7 mg/dL (8.4-10.2); CARBON DIOXIDE 34 mmol/L (22-29); CHLORIDE 103 mmol/L (98-107); CREATININE, SERUM 0.93 mg/dL (0.72-1.25); EST GLOMERULAR FILTRATION RATE > 60 ML/MIN (60-); GLUCOSE 113 mg/dL (74-118); POTASSIUM 3.6 mmol/L (3.5-5.1); SODIUM 142 mmol/L (136-145)
[2017-11-07] MEDS: PANTOPRAZOLE 40 MG 10ML VIAL IV SCH (08:58)
[2017-11-07] MEDS: COLLAGENASE 5 GM TUBE TOP SCH (08:58)
[2017-11-07] MEDS: BALSAM PERU/CASTOR OIL 60 GM OINT...G. TP SCH (08:58)
[2017-11-07] MEDS: FUROSEMIDE INJ 10 MG/ML 4 ML VIAL IV SCH (08:58)
[2017-11-07] MEDS: CHOLESTYRAMINE 4 GM PACKET PO SCH ×2 (08:58→17:30)
[2017-11-07] MEDS: AMIODARONE HCL 200 MG TAB PO SCH (08:58)
[2017-11-07] MEDS: FLUCONAZOLE 400MG/200ML BAG 200 ML IV SCH (09:00)
[2017-11-07] MEDS: ACETYLCYSTEINE 20% INHAL SOLN 30 ML VIAL INH SCH ×2 (09:00→19:25)
[2017-11-07] MEDS ORDERED: POTASSIUM CHLORIDE 20 MEQ TAB CR PO SCH (13:43)
[2017-11-07] MEDS ORDERED: FUROSEMIDE INJ 10 MG/ML 4 ML VIAL IV SCH (13:45)
[2017-11-07] MEDS ORDERED: FLUCONAZOLE 200 MG/100 ML 100 ML IV SCH (16:15)
--- NOTE | 2017-11-07 16:48 | Progress Note ---
DATE: November 07, 2017 INFECTIOUS DISEASE PROGRESS NOTE SUBJECTIVE: Mr. Garnica is improving. He is feeling better. His diarrhea has improved. He has no new complaint. He is currently on TPN. PHYSICAL EXAMINATION GENERAL: He is currently alert, oriented, does not seem to be in acute distress. VITAL SIGNS: Stable. Currently afebrile. HEENT: He does not appear icteric. NECK: Supple. CHEST: Clear bilaterally. HEART: S1 and S2. No S3 or S4, no murmur. ABDOMEN: Soft. Bowel sounds present. No tenderness. EXTREMITIES: No edema. SKIN: No rash. IMPRESSION 1. Funguria, getting better. To finish 14 days of Diflucan. Will adjust the dose to 200 mg IV piggyback q.24 h. 2. Coagulase-negative staph bacteremia, probably contamination. Will discontinue his IV vancomycin. 3. Clostridium difficile, getting better. Continue current choice. I would recommend to increase p.o. intake and wean down his TPN. 4. Debilitated. Would recommend also PT/OT and maybe LTAC. 5. Status post surgery: Status post exploratory laparotomy, lysis of adhesion and right colectomy, stable. Will follow. Job#: [id number] EV
[2017-11-07] MEDS: ENOXAPARIN 30 MG/0.3 ML SYR SC SCH (17:30)
[2017-11-08 00:12] VITALS: BP 127/69
[2017-11-08] MEDS: VANCOMYCIN 250MG/5ML ORAL SOLN PO SCH ×3 (00:12→13:00)
[2017-11-08] MEDS: METRONIDAZOLE 500MG/NS 100ML 100 ML IV SCH ×3 (00:12→13:00)
[2017-11-08] MEDS: LEVALBUTEROL HCL SOLN NEBU 1.25 MG/3 ML NEB INH SCH ×3 (01:50→13:00)
[2017-11-08 05:14] VITALS: BP 139/79
[2017-11-08] MEDS: ACETYLCYSTEINE 20% INHAL SOLN 30 ML VIAL INH SCH (07:30)
[2017-11-08 07:45] VITALS: BP 144/78
[2017-11-08] MEDS ORDERED: FLUTICASONE PROPIONATE NASAL SPRAY NS SCH (09:00)
[2017-11-08] MEDS ORDERED: FUROSEMIDE INJ 10 MG/ML 4 ML VIAL IV SCH (09:00)
[2017-11-08] MEDS ORDERED: FLUCONAZOLE 200 MG/100 ML 100 ML IV SCH (09:00)
[2017-11-08] MEDS: BALSAM PERU/CASTOR OIL 60 GM OINT...G. TP SCH (09:16)
[2017-11-08] MEDS: PANTOPRAZOLE 40 MG 10ML VIAL IV SCH (09:16)
[2017-11-08] MEDS: CHOLESTYRAMINE 4 GM PACKET PO SCH ×2 (09:16→17:00)
[2017-11-08] MEDS: COLLAGENASE 5 GM TUBE TOP SCH (09:16)
[2017-11-08] MEDS: AMIODARONE HCL 200 MG TAB PO SCH (09:17)
[2017-11-08 13:05] VITALS: BP 135/67
--- NOTE | 2017-11-08 14:53 | Progress Note ---
DATE: November 08, 2017 INFECTIOUS DISEASE PROGRESS NOTE SUBJECTIVE: Mr. Garnica is feeling better, but he is still very weak. He is still on TPN. REVIEW OF SYSTEMS: There is nothing new today. His diarrhea seems to be better. PHYSICAL EXAMINATION GENERAL: He is alert, very weak. VITAL SIGNS: Stable. Afebrile. Temperature 98.3, heart rate 73, blood pressure 139/79. HEENT: He does not appear icteric, normocephalic. NECK: Supple. No JVD. CHEST: Clear bilaterally. COR: S1 and S2. No S3 or S4, no murmur. ABDOMEN: Soft. Bowel sounds present. EXTREMITIES: No edema. IMPRESSION 1. Sepsis, resolving. Clostridium difficile colitis better. Continue with the same. 2. Fungemia, resolving. Finish 14 days of fluconazole. He is still on TPN. 3. Status post abdominal surgery. 4. Will need PT, OT, and nutritional support. Agree with going to LTAC. 5. Anemia. 6. Will follow. Job#: [id number]
[2017-11-08 16:21] VITALS: BP 135/76
[2017-11-08] MEDS: ENOXAPARIN 30 MG/0.3 ML SYR SC SCH (17:17)
[2017-11-09] MEDS ORDERED: AMIODARONE HCL 200 MG TAB PO SCH (09:00)
--- NOTE | 2017-12-08 13:22 | Operative Report ---
DATE OF PROCEDURE: October 19, 2017 PREOPERATIVE DIAGNOSIS: Small-bowel obstruction. POSTOPERATIVE DIAGNOSIS: Small-bowel obstruction secondary to right and left colonic masses. OPERATION PERFORMED 1. Exploratory laparotomy. 2. Extensive lysis of adhesions. 3. Right colectomy. 4. Sigmoid colectomy. ENGLISH LECTURER: Eduardo Ruiz MD ANESTHESIA: General endotracheal. COMPLICATIONS: None. ESTIMATED BLOOD LOSS: 200 mL. DESCRIPTION OF PROCEDURE: With the patient lying in bed in the supine position, under good general endotracheal anesthesia, the abdomen was prepped with Betadine solution and draped in the usual manner. A midline incision was made. It was carried down through the subcutaneous tissue and through the midline fascia. The peritoneum was opened, and the abdomen was entered. Upon entering the abdominal cavity, numerous adhesions were encountered, which were slowly and carefully lysed. We were able to get access into the free intra-abdominal cavity. At this point, examination revealed that the patient had massively distended jejunum that was extending up above the liver. Some loops of jejunum were 8 to 10 cm in size. This obviously was a chronic dilatation. Adhesions were taken down distally from the ligament of Treitz. Slowly and carefully, we managed to mobilize all of the loops of bowel. The point of obstruction appeared to be some adhesions in the pelvis as well as at the level of the terminal ileum. There was some kind of a mass of the terminal ileum, which was not clear whether this was some kind of malignancy or perhaps some kind of ileitis. We decided that we would need to go ahead and do a resection at this point as this was a very tight area and obviously was a significant point of obstruction. Once all of the adhesions of the small bowel were lysed, the terminal ileum was then divided with an application of the MERI 75 stapler. The right colon was mobilized medially off of the lateral gutter, and the ascending colon was mobilized medially. The hepatocolic ligament was taken down with the Enseal device. The proximal transverse colon was then divided with an application of MERI 75 stapler. The mesentery of the colon was then divided with the Enseal device, and the specimen was sent for pathological examination. The small bowel was then opened, and all of the massively distended bowel was decompressed through the opening of the bowel, and all of the fluid was sucked out of the small bowel. After this was done, the anastomosis was then performed with another application of the MERI 75 stapler, bringing the terminal ileum to the transverse colon. Remaining opening was closed with a TA 60 stapler. Gloves and instruments were changed. Anastomosis was then reinforced with 3-0 silk. The mesenteric rent was closed with a running suture of 2-0 Vicryl. Further exploration of the colon revealed where the patient had a previous colon resection that anastomosis was also strictured down, and there was some hard bowel just above it that could not be passed through the small opening that was left in the colon. We decided this needed to be resected as well. The colon was then mobilized both proximal and distal to the point of obstruction and divided with the MERI stapler proximally and distally. A small section of the colon was resected. The mesentery was divided with the Enseal device, and we sent the specimen for pathological examination. An anastomosis was then done in a [id number] fashion with another application of the MERI 75 stapler. The remaining opening was closed with a TA 60 stapler. Gloves and instruments were changed. The abdomen was then copiously irrigated. Perfect hemostasis was ascertained. The anastomosis was reinforced with 3-0 silk sutures, and the abdomen was then closed in layers. Peritoneum was closed with a running suture of #1 Vicryl. The midline fascia was closed with a running suture of #1 PDS, and the skin was closed with clips. A dressing was applied. The sponge, lap and needle count was correct. Patient tolerated the procedure well and returned to the recovery room in stable condition. Job#: [id number]
[2017-12-20 15:32] LABS: ABG HCO3 33 mmol/L (23-28); ABG PCO2 65 mmHg (41-51); ABG PO2 63 mmHg (80-105)
== END 2017-11-08 18:43 | DRG 329 ==
LOC: ER 06:07 → ERHOLD 09:15 → MED/SURG 10:32 → ICU 10-19 16:21 → MED/SURG 10-21 17:52 → ICU 10-23 08:39 → IMCU 11-05 02:11
PROVIDERS: ADMIT Surgery; ATTEND Surgery
PROC: 0DTF0ZZ Resection of Right Large Intestine, Open Approach (ICD-10-PCS; principal; 2017-10-13)
PROC: 0DBN0ZZ Excision of Sigmoid Colon, Open Approach (ICD-10-PCS; 2017-10-13)
PROC: 0DNN0ZZ Release Sigmoid Colon, Open Approach (ICD-10-PCS; 2017-10-13)
PROC: 0DNF0ZZ Release Right Large Intestine, Open Approach (ICD-10-PCS; 2017-10-13)
PROC: 3E0336Z Introduction of Nutritional Substance into Peripheral Vein, Percutaneous Approach (ICD-10-PCS; 2017-10-17)
PROC: 02HV33Z Insertion of Infusion Device into Superior Vena Cava, Percutaneous Approach (ICD-10-PCS; 2017-10-18)
PROC: 3E0436Z Introduction of Nutritional Substance into Central Vein, Percutaneous Approach (ICD-10-PCS; 2017-10-20)
PROC: 5A1945Z Respiratory Ventilation, 24-96 Consecutive Hours (ICD-10-PCS; 2017-10-24)
PROC: 0BH17EZ Insertion of Endotracheal Airway into Trachea, Via Natural or Artificial Opening (ICD-10-PCS; 2017-10-24)
PROC: 3E043XZ Introduction of Vasopressor into Central Vein, Percutaneous Approach (ICD-10-PCS; 2017-10-24)
PROC: 0B968ZX Drainage of Right Lower Lobe Bronchus, Via Natural or Artificial Opening Endoscopic, Diagnostic (ICD-10-PCS; 2017-10-25)
PROC: 0W993ZZ Drainage of Right Pleural Cavity, Percutaneous Approach (ICD-10-PCS; 2017-10-27)
PROC: 02HV33Z Insertion of Infusion Device into Superior Vena Cava, Percutaneous Approach (ICD-10-PCS; 2017-10-28)
PROC: 5A09357 Assistance with Respiratory Ventilation, Less than 24 Consecutive Hours, Continuous Positive Airway Pressure (ICD-10-PCS; 2017-10-28)
PROC: 30243N1 Transfusion of Nonautologous Red Blood Cells into Central Vein, Percutaneous Approach (ICD-10-PCS; 2017-10-31)
PROC: 5A09357 Assistance with Respiratory Ventilation, Less than 24 Consecutive Hours, Continuous Positive Airway Pressure (ICD-10-PCS; 2017-11-02)
DX: K50.012 Crohn's disease of small intestine with intestinal obstruction (principal); J96.01 Acute respiratory failure with hypoxia; T80.211A Bloodstream infection due to central venous catheter, initial encounter; B37.1 Pulmonary candidiasis; I26.99 Other pulmonary embolism without acute cor pulmonale; I50.33 Acute on chronic diastolic (congestive) heart failure; B37.7 Candidal sepsis; J18.9 Pneumonia, unspecified organism; L89.153 Pressure ulcer of sacral region, stage 3; E87.1 Hypo-osmolality and hyponatremia; I82.411 Acute embolism and thrombosis of right femoral vein; J44.0 Chronic obstructive pulmonary disease with (acute) lower respiratory infection; D62 Acute posthemorrhagic anemia; E46 Unspecified protein-calorie malnutrition; I11.0 Hypertensive heart disease with heart failure; K57.30 Diverticulosis of large intestine without perforation or abscess without bleeding; Y95 Nosocomial condition; F17.200 Nicotine dependence, unspecified, uncomplicated; E78.5 Hyperlipidemia, unspecified; M06.9 Rheumatoid arthritis, unspecified; G62.9 Polyneuropathy, unspecified; I48.0 Paroxysmal atrial fibrillation; R41.82 Altered mental status, unspecified; E86.0 Dehydration; E87.6 Hypokalemia; D63.8 Anemia in other chronic diseases classified elsewhere; H91.90 Unspecified hearing loss, unspecified ear; I25.10 Atherosclerotic heart disease of native coronary artery without angina pectoris; Z95.0 Presence of cardiac pacemaker; Z85.51 Personal history of malignant neoplasm of bladder; Z85.46 Personal history of malignant neoplasm of prostate; Z79.82 Long term (current) use of aspirin; Z79.899 Other long term (current) drug therapy; Z78.1 Physical restraint status; Z88.0 Allergy status to penicillin; Z88.7 Allergy status to serum and vaccine; Z88.8 Allergy status to other drugs, medicaments and biological substances
CPT/HCPCS: 32555; 36415; 36430; 36569; 36600; 71045; 71260; 74018; 74022; 74177; 74230; 74470; 76604; 80048; 80053; 80076; 80202; 81001; 82270; 82550; 82553; 82805; 82948; 83605; 83615; 83735; 83880; 84134; 84157; 84443; 84478; 84484; 84630; 85014; 85018; 85025; 85610; 85730; 86850; 86900; 86920; 87040; 87070; 87071; 87086; 87102; 87205; 87206; 87335; 87493; 88307; 88329; 89051; 93005; 93306; 93970; 94002; 94003; 94640; 94660; 96360; 96361; 96365; 96366; 97139; 99285; J0171; J0330; J0461; J0696; J1100; J1160; J1170; J1450; J1630; J1650; J1940; J2001; J2248; J2250; J2270; J2405; J2930; J3370; J3480; J7030; J7040; J7042; J7050; J7060; P9016; Q9967